=== PATIENT | male | born 1935 | race Caucasian/White ===

== ENCOUNTER 2017-09-15 13:09 | Inpatient (IN) | payer BC, MEDICARE ==
[~2017-09-15] VITALS: Ht 175.3 cm; Wt 75.0 kg
[~2017-09-15 13:09] MED LIST: ASPI-676; CELEBREX; DIOVAN/HCTZ; FEXOFENADINE; LEVAQUIN; [UNRECOGNIZED DRUG - OTHER]
[2017-09-15] MEDS ORDERED: SODIUM CHLORIDE 0.9% 1L BAG IV* STA (15:34)
--- NOTE | 2017-09-15 15:50 | ERD ---
ER Documentation Chief Complaint Chief Complaint generalized weakness,left leg discoloration/swelling x4 days, near syncope HPI This is an 82-year-old male with a known history of hypertension and previous right thoracotomy in 2009 due to a total pulmonary D cortication from a loculated pleural effusion who is on home oxygen 2.5 L. The patient does not smoke tobacco since 2009. His brought him to the emergency department stating that over the past 2 weeks he has had generalized weakness with multiple episodes of near syncope. The patient did have 2 episodes of syncope in July and August roughly 2 months prior to arrival when he fell and hit the left side of his head. She indicates that he has not complained of a headache or changes in vision. He has had issues with insomnia and has been placed on trazodone for sleep. He has had no fevers or shaking or chills. He denies a productive or nonproductive cough. He denies any abdominal pain. His also indicates that he has had pain and swelling of his left lower extremity due to blunt trauma that occurred 4 days prior to arrival. They have 100 pound [place] cross dog that had accidentally been running and stepped on the patient's left lower extremity 4 days prior to arrival. He has been able to ambulate but this exacerbates the pain. There is a significant amount of swelling and bruising which concerned the patient and therefore he was brought to the emergency department for further evaluation. His primary care physician is Dr. Menjivar. [place] any decreased sensation numbness or tingling of the left lower extremity. ROS All systems reviewed and are negative except as per history of present illness. Medications Home Meds Reported Medications Escitalopram Oxalate* (Escitalopram Oxalate*) 10 Mg Tablet, 10 MG PO BID, #30 TAB PATIENT OK IF HE TAKING THIS MEDS IN DAY TIME, BUT FOR NIGHT TIME ITS CAUSE ADV. REACTION. 09/15/17 Alendronate Sodium* (Fosamax*) 70 Mg Tablet, 70 MG PO Q7D, #4 TAB 09/15/17 Celecoxib* (Celebrex*) 200 Mg Capsule, 200 MG PO DAILY, CAP 09/15/17 Montelukast Sodium* (Montelukast Sodium*) 10 Mg Tablet, 10 MG PO QHS, #30 TAB 09/15/17 Lansoprazole* (Lansoprazole*) 30 Mg Capsule., 30 MG PO DAILY, CAP 09/15/17 Atorvastatin Calcium* (Atorvastatin Calcium*) 20 Mg Tablet, 20 MG PO QHS, #30 TAB 09/15/17 Tamsulosin Hcl* (Tamsulosin Hcl*) 0.4 Mg Cap.er.24h, 0.4 MG PO DAILY, CAP 09/15/17 Metolazone* (Metolazone*) 2.5 Mg Tablet, 2.5 MG PO NEEDED, TAB TAKE EVERY M,W,F IF NEEDED 09/15/17 Furosemide* (Furosemide*) 40 Mg Tablet, 80 MG PO BID, TAB 09/15/17 Allopurinol* (Allopurinol*) 100 Mg Tablet, 100 MG PO DAILY, TAB 09/15/17 Potassium Chloride* (K-Dur*) 10 Meq Tab.prt.sr, 10 MEQ PO DAILY, TAB AND PATIENT TAKE 2TAB IN M,W F WITH METOLAZONE 09/15/17 Discontinued Reported Medications [Fexofenadine] No Conflict Check 10/30/09 [Restaril] No Conflict Check 10/30/09 [Levaquin] No Conflict Check 10/30/09 [Celebrex] No Conflict Check 10/30/09 [Diovan/Hctz] No Conflict Check 10/30/09 Aspirin (Francine Child) 81 Mg Chew 10/30/09 Allergies Allergies: Coded Allergies: No Known Allergy (Unverified , 09/15/17) PMhx/Soc History of Surgery: Yes (SPINAL SURGER) Hx Neurological Disorder: No Hx Respiratory Disorders: No Hx Cardiac Disorders: Yes Hx Miscellaneous Medical Probl: No Hx Alcohol Use: No Hx Substance Use: No Hx Tobacco Use: No Physical Exam Vitals Vital Signs Date Time Temp Pulse Resp B/P Pulse Ox O2 Delivery O2 Flow Rate FiO2 09/15/17 17:39 75 18 109/65 99 Nasal Cannula 3.0 09/15/17 16:23 74 20 121/64 Nasal Cannula 3.0 09/15/17 13:12 97.8 83 24 116/59 91 Physical Exam Constitutional:Well-developed. Well-nourished. HEENT:Normocephalic. Atraumatic.Pupils were equal round reactive to light. Dry mucous membranes.No tonsillar exudates. Left scalp abrasion. No nasal septal hematoma. Neck: No nuchal rigidity. No lymphadenopathy. No posterior cervical spine tenderness or step-offs. Respiratory: Not using accessory muscles of respiration. Wheezing on end auscultation bilaterally. Decreased breath sounds in the right lower lobe. Cardiovascular: Regular rate regular rhythm.No murmurs. No rubs were appreciated.S1, S2 normal. Distal pulses are palpable 2+ bilaterally. GI: Abdomen was soft. Nontender. Non Distended. No pulsatile abdominal masses or bruits. No rebound. No guarding. Bowel sounds were present and normal. Muscle skeletal: Full range of motion of both the upper and lower extremities bilaterally.Normal muscle tone. Large hematoma with blistering on the medial distal left lower extremity with ecchymosis circumferentially over the distal third of the left lower extremity. Compartments were soft bilaterally. Left calf tenderness with negative Homans sign Skin: No petechia, no purpura. No lesions on the palms or the soles of the feet. No maculopapular rash. NEURO: Patient was alert, awake, orientated x3.No facial droop. Gait observed and normal with no ataxia.Speech had regular rate and rhythm. No focal neurological deficits. Result Diagram: 09/15/17 1610 09/15/17 1610 Results 24 hrs Laboratory Tests Test 09/15/17 16:10 White Blood Count 11.710^3/ul Red Blood Count 4.1510^6/ul Hemoglobin 12.4g/dl Hematocrit 37.4% Mean Corpuscular Volume 90.1fl Mean Corpuscular Hemoglobin 29.9pg Mean Corpuscular Hemoglobin Concent 33.2g/dl Red Cell Distribution Width 13.3% Platelet Count 78672^3/UL Mean Platelet Volume 10.1fl Neutrophils % 83.3% Lymphocytes % 8.7% Monocytes % 7.4% Eosinophils % 0.2% Basophils % 0.1% Nucleated Red Blood Cells % 0.0/100WBC Neutrophils # 9.810^3/ul Lymphocytes # 1.010^3/ul Monocytes # 0.910^3/ul Eosinophils # 0.010^3/ul Basophils # 0.010^3/ul Nucleated Red Blood Cells # 0.010^3/ul Prothrombin Time 12.8Sec Prothrombin Time Ratio 1.0 INR International Normalized Ratio 0.95 Activated Partial Thromboplast Time 27.5Sec Sodium Level 126mmol/L Potassium Level 3.0mmol/L Chloride Level 70mmol/L Carbon Dioxide Level 49mmol/L Anion Gap 10 Blood Urea Nitrogen 35mg/dl Creatinine 0.96mg/dl Glucose Level 97mg/dl Lactic Acid Level 1.2mmol/L Calcium Level 9.3mg/dl Total Bilirubin 0.7mg/dl Direct Bilirubin 0.00mg/dl Indirect Bilirubin 0.7mg/dl Aspartate Amino Transf (AST/SGOT) 32IU/L Alanine Aminotransferase (ALT/SGPT) 39IU/L Alkaline Phosphatase 79IU/L Troponin I 0.023ng/ml B-Type Natriuretic Peptide 678PG/ML Total Protein 6.8g/dl Albumin 3.8g/dl Globulin 3.00g/dl Albumin/Globulin Ratio 1.26 Amylase Level 70U/L Lipase 48U/L Current Medications Medications (Trade) Dose Ordered Sig/Harry Route PRN Reason Start Time Stop Time Status Last Admin Dose Admin Sodium Chloride (NS) 2,330 ml BOLUS OVER 2 HOURS STAT IV* 09/15/17 15:34 09/15/17 15:37 DC 09/15/17 16:13 Albuterol (Proventil 0.5% (Neb)) 10 mg ONCE STAT NEB 09/15/17 15:51 09/15/17 15:52 DC 09/15/17 18:04 Ipratropium [place] (Atrovent 0.02% (Neb)) 0.5 mg ONCE STAT NEB 09/15/17 15:51 09/15/17 15:52 DC 09/15/17 18:04 Methylprednisolone Sodium Succinate (Solu-Medrol) 125 mg ONCE STAT IV 09/15/17 15:51 09/15/17 15:52 DC 09/15/17 16:12 Ondansetron HCl (Zofran Inj) 4 mg ER BRIDGE PRN IV NAUSEA AND/OR VOMITING 09/15/17 18:30 09/16/17 18:29 UNV Acetaminophen (Tylenol Tab) 650 mg ER BRIDGE PRN PO MILD PAIN/FEVER 09/15/17 18:30 09/16/17 18:29 UNV Procedures/MDM The patient presented to the emergency department with a transient loss of consciousness with loss of postural tone, suggestive of a syncope episode that has occurred twice over the past several months with multiple recurrent episodes of near syncope. The differential diagnosis of syncope is vast but my workup considered common benign disorders to life-threatening processes. Therefore my differential diagnosis included but was not limited to reflex- mediated syncope such as vasovagal or carotid sinus syncope from coughing, sneezing, micturition, or GI stimulation (eg, defecation). Other etiologies in my workup included orthostatic hypotension which could cause syncope from an abrupt drop in venous return to heart from volume depletion. An EKG and cardiac enzymes were obtained to rule out cardiac arrhythmias or ischemia. Cardiopulmonary disease such as valvular disease, hypertrophic cardiomyopathy, pericardial tamponade, or pulmonary embolism were considered as a factor causing the patients syncope episode. The patient had no difference in blood pressure in both arms that could suggest aortic dissection or subclavian steal syndrome. Rectal exam was negative for fecal occult blood that could suggest GI bleeding. Ancillary laboratory work was obtained to evaluate for metabolic or electrolyte abnormalities. The patient had no witnessed brief tonic movements that could suggest postictal confusion. The patient was placed on a surveillance system monitor, continuous pulse oximetry and IV access established by nursing staff. I obtained a 12-lead EKG tracing to rule out atypical myocardial infarction I could be result of his myalgias and weakness. 12 Lead EKG tracing ordered and reviewed by myself showed: Normal sinus rhythm of 74 bpm and no arrhythmia. VT interval prolonged at 214 ms with first-degree AV block QRS duration widened at 160ms with right bundle branch block No ST segment elevation No ST segment depression. No changes consistent with acute ischemia. He also had mild respiratory distress thought to be secondary to his underlying COPD. He is on home oxygen. This was maintained in the emergency department with nasal cannula. He received nebulizer treatments of albuterol Atrovent 125 mg of Solu-Medrol. His hypoxia had improved after the nebulizer treatment but I did feel the patient required admission for continuous nebulizer treatments. The patient's CO2 level was elevated however this appeared to be the patient's baseline as there is no evidence of confusion that could suggest CO2 narcosis at this time The patient had a large hematoma of his left lower extremity but there is no evidence of a DVT nor was there a tib-fib fracture. The patient will be admitted in serious condition to his primary care physician Dr. Menjivar. I will place the patient on the telemetry service due to his hypoxia and history of COPD. Dr. Menjivar will obtain a surgical consult for further evaluation into the patient's lower extremity hematoma with no evidence of compartment syndrome at this time Departure Diagnosis: Primary Impression: Acute exacerbation of chronic obstructive pulmonary disease (COPD) Additional Impressions: Hematoma of left lower extremity Encounter type: initial encounter Qualified Code: S80.12XA - Hematoma of left lower extremity, initial encounter Frequent falls Near syncope Condition: Serious SHEYLA EDWARD Sep 15, 2017 15:50
[2017-09-15] MEDS ORDERED: IPRATROPIUM (NEB) 0.5 MG/2.5 ML AMP NEB STA (15:51)
[2017-09-15] MEDS ORDERED: ALBUTEROL 0.5% (NEB) 2.5 MG/0.5 ML AMP NEB STA (15:51)
[2017-09-15] MEDS ORDERED: METHYLPREDNISOLONE 125 MG INJ IV STA (15:51)
--- NOTE | 2017-09-15 16:29 | RADRPT ---
PROCEDURE: US Lower extremity Venous. CLINICAL INDICATION: Pain and swelling TECHNIQUE: Multiple sonographic images of the left lower extremity deep venous system was obtained utilizing grayscale, color-flow, compressive sonography and doppler imaging with augmentation. The images were reviewed on a PACS workstation. COMPARISON: None. FINDINGS: There is normal compressibility and flow within the left common femoral, deep femoral, superficial f emoral and popliteal veins. Normal respiratory variation and augmentation is seen. There is normal color flow and compressibility of left posterior tibial and peroneal veins IMPRESSION: No sonographic evidence for left lower extremity deep venous thrombosis. RPTAT: HH .Kane Dubon MD, MD Date Time Electronically viewed and signed by .Kane Dubon MD, on 09/15/2017 16:28 .W/
[2017-09-15 16:34] LABS: BASOPHILS % 0.1 % (0.0-2.0); EOSINOPHILS % 0.2 % (0.0-7.0); HEMATOCRIT 37.4 % (42.0-52.0); HEMOGLOBIN 12.4 g/dl (14.0-18.0); LYMPHOCYTES % 8.7 % (15.0-51.0); MEAN CORPUSCULAR HEMOGLOBIN 29.9 pg (29.0-33.0); MEAN CORPUSCULAR HGB CONC 33.2 g/dl (32.0-37.0); MEAN CORPUSCULAR VOLUME 90.1 fl (82.0-101.0); MEAN PLATELET VOLUME 10.1 fl (7.4-10.4); MONOCYTE # 0.9 10^3/ul (0.3-0.9); MONOCYTES % 7.4 % (0.0-11.0); NEUTROPHIL # 9.8 10^3/ul (1.6-7.5); NEUTROPHILS % 83.3 % (39.0-77.0); PLATELET COUNT 285 10^3/UL (140-415); RED BLOOD COUNT 4.15 10^6/ul (4.70-6.10); RED CELL DISTRIBUTION WIDTH 13.3 % (11.5-14.5); WHITE BLOOD COUNT 11.7 10^3/ul (4.8-10.8)
[2017-09-15 16:53] LABS: INR 0.95; PROTIME 12.8 Sec (11.9-14.9)
[2017-09-15 16:54] LABS: PARTIAL THROMBOPLASTIN TIME 27.5 Sec (25.0-35.0)
[2017-09-15 17:03] LABS: ALBUMIN 3.8 g/dl (3.3-4.9); ALBUMIN/GLOBULIN RATIO 1.26; BILIRUBIN,INDIRECT 0.7 mg/dl (0-1.1); BILIRUBIN,TOTAL 0.7 mg/dl (0.2-1.3); CALCIUM 9.3 mg/dl (8.4-10.2); CREATININE 0.96 mg/dl (0.61-1.24); TOTAL PROTEIN 6.8 g/dl (6.1-8.1)
--- NOTE | 2017-09-15 17:05 | RADRPT ---
PROCEDURE: XR Tibia and Fibula. CLINICAL INDICATION: Blunt trauma and large hematoma. TECHNIQUE: AP, lateral and oblique views of the left tibia and fibula were obtained. COMPARISON: No prior studies are available for comparison. FINDINGS: There is normal mineralization and alignment.No fracture or osseous lesion is identified. The joints are unremarkable. Large subcutaneous soft tissue swelling along the medial distal lower leg most co mpatible with soft tissue hematoma. IMPRESSION: 1. No fracture or dislocation. Large medial lower leg soft tissue hematoma. RPTAT:AAJJ Opal Tyson Physician Date Time Electronically viewed and signed by Physician Tom on 09/15/2017 17:05 KYARA/
--- NOTE | 2017-09-15 17:06 | RADRPT ---
PROCEDURE: XR Chest. CLINICAL INDICATION: Sepsis. TECHNIQUE: Single AP portable chest. COMPARISON: 12/08/2009 Chest x-ray FINDINGS: The cardiac silhouette is enlarged. Interval decrease vascular congestion and pleural effusions comp atible with improving CHF. The lungs are clear without pleural effusion or focal consolidation. No pneumothorax. The osseous structures and soft tissues are unremarkable. IMPRESSION: 1. Decreased vascular congestion and pleural effusions compatible with improving CHF . RPTAT:AAJJ Opal Tyson Physician Date Time Electronically viewed and signed by Physician Tom on 09/15/2017 17:06 KYARA/
[2017-09-15 17:14] LABS: TROPONIN-I 0.023 ng/ml (0.00-0.12)
[2017-09-15] MEDS ORDERED: ALLO100T PO (17:18)
[2017-09-15] MEDS ORDERED: FURO40TA4 PO (17:18)
[2017-09-15] MEDS ORDERED: POTA10TA37 PO (17:18)
[2017-09-15] MEDS ORDERED: METO2.5T12 PO (17:19)
[2017-09-15] MEDS ORDERED: TAMS0.4C2 PO (17:20)
[2017-09-15] MEDS ORDERED: ATOR20TA38 PO (17:20)
[2017-09-15] MEDS ORDERED: LANS30CA PO (17:20)
[2017-09-15] MEDS ORDERED: ALEN70TA30 PO (17:21)
[2017-09-15] MEDS ORDERED: MONT10TA24 PO (17:21)
[2017-09-15] MEDS ORDERED: CELE200C PO (17:21)
[2017-09-15] MEDS ORDERED: ESCI10TA48 PO (17:24)
[2017-09-15] MEDS ORDERED: ONDANSETRON 4 MG INJ IV PRN (18:30)
[2017-09-15] MEDS ORDERED: ACETAMINOPHEN 325 MG TAB PO PRN (18:30)
--- NOTE | 2017-09-15 20:55 | RADRPT ---
PROCEDURE: CT Brain without contrast. CLINICAL INDICATION: Head trauma. TECHNIQUE: A CT of the brain was performed on a GE 64-slice CT scanner utilizing axial imaging fro m the skull base through the vertex without intravenous contrast. Multiplanar reformatted images wer e made. One or more the following dose reduction techniques were utilized: Automated exposure contr ol, adjustment of the mA/ or kV according to patient's size, or use of iterative reconstruction tech nique. DICOM images are available for review. The CTDIvol is 45.0 mGy and the DLP is 720.2 mGycm. COMPARISON: None. FINDINGS: There is no intracranial hemorrhage, mass effect, or midline shift. No extra-axial fluid collection is seen. Mild atrophy is identified with compensatory ventricular and sulcal enlargement. Moderat e decreased attenuation is seen in the periventricular and deep white matter, compatible with microv ascular ischemic disease. The castillo white matter differentiation is well preserved with no acute infa rct detected. The osseous structures and visualized paranasal sinuses are unremarkable. IMPRESSION: 1. No evidence of acute intracranial pathology. 2. Mild diffuse atrophy. 3. There is moderate microvascular ischemic disease in the periventricular and deep white matter. RPTAT: HJAH .Jessika Meyer MD, MD Date Time Electronically viewed and signed by .Jessika Meyer MD, on 09/15/2017 20:54 .H/
[2017-09-16] VITALS (16 sets, daily range): BP systolic 102–150; BP diastolic 50–89; PULSE 78–90; RESP 17–21; TEMP 99.1; Ht 175.3 cm; Wt 75.0 kg
[2017-09-16] MEDS ORDERED: ALENDRONATE 70 MG TAB PO SCH (02:00)
[2017-09-16] MEDS ORDERED: POTASSIUM CHLORIDE (SR) 20 MEQ TAB PO STA (02:06)
[2017-09-16] MEDS ORDERED: VANCOMYCIN IV PER PHARMACY XX SCH (02:30)
[2017-09-16] MEDS ORDERED: ALBUTEROL/IPRATROPIUM (NEB) 3 ML AMP HHN PRN (02:30)
[2017-09-16] MEDS ORDERED: VANCOMYCIN 1 GM (PMX) 250 ML IVPB SCH (02:30)
[2017-09-16] MEDS: LEVOFLOXACIN 500MG/D5W (PMX) 100 ML IVPB SCH (02:49)
[2017-09-16] MEDS ORDERED: VANCOMYCIN 1.5 GM in SOD CHLORIDE 0.9% 250 ML IVPB SCH (04:00)
[2017-09-16] MEDS: PANTOPRAZOLE (EC) 40 MG TAB PO SCH (05:50)
[2017-09-16] MEDS: ALLOPURINOL 100 MG TAB PO SCH (08:43)
[2017-09-16] MEDS: ESCITALOPRAM 10 MG TAB PO SCH ×2 (08:44→21:43)
[2017-09-16] MEDS: POTASSIUM CHLORIDE (SR) 10 MEQ TAB PO SCH (08:45)
[2017-09-16] MEDS: TAMSULOSIN (SR) 0.4 MG CAP PO SCH (08:45)
[2017-09-16] MEDS: CELECOXIB 200 MG CAP PO SCH (08:46)
[2017-09-16] MEDS: FUROSEMIDE 40 MG INJ IV SCH (08:47)
[2017-09-16 09:08] LABS: WHITE BLOOD COUNT 9.1 10^3/ul (4.8-10.8)
[2017-09-16 09:09] LABS: HEMATOCRIT 32.7 % (42.0-52.0); HEMOGLOBIN 10.7 g/dl (14.0-18.0); LYMPHOCYTES # 0.8 10^3/ul (0.8-2.9); LYMPHOCYTES % 8.2 % (15.0-51.0); MEAN CORPUSCULAR HEMOGLOBIN 30.1 pg (29.0-33.0); MEAN CORPUSCULAR HGB CONC 32.7 g/dl (32.0-37.0); MEAN CORPUSCULAR VOLUME 91.9 fl (82.0-101.0); MEAN PLATELET VOLUME 10.2 fl (7.4-10.4); MONOCYTE # 0.9 10^3/ul (0.3-0.9); MONOCYTES % 10.1 % (0.0-11.0); NEUTROPHIL # 7.4 10^3/ul (1.6-7.5); NEUTROPHILS % 81.3 % (39.0-77.0); PLATELET COUNT 274 10^3/UL (140-415); RED BLOOD COUNT 3.56 10^6/ul (4.70-6.10); RED CELL DISTRIBUTION WIDTH 13.4 % (11.5-14.5)
[2017-09-16 09:33] LABS: ALBUMIN 3.2 g/dl (3.3-4.9); ALBUMIN/GLOBULIN RATIO 1.14; BILIRUBIN,INDIRECT 0.5 mg/dl (0-1.1); BILIRUBIN,TOTAL 0.5 mg/dl (0.2-1.3); CALCIUM 8.9 mg/dl (8.4-10.2); CREATININE 0.83 mg/dl (0.61-1.24); POTASSIUM 3.7 mmol/L (3.5-5.1)
[2017-09-16 09:41] LABS: CHOL/HDL RATIO 1.9 RATIO
[2017-09-16] MEDS: ALBUTEROL/IPRATROPIUM (NEB) 3 ML AMP HHN SCH ×4 (09:55→20:04)
--- NOTE | 2017-09-16 09:58 | CONS ---
Date/Time of Note Date/Time of Note DATE: 09/16/17 TIME: 09:34 Assessment/Plan Assessment/Plan Chief Complaint/Hosp Course 1. Large medial lower leg soft tissue hematoma: on daily asa 325mg; no fracture , no dvt -elevate leg above heart -pain management -evacuate hematoma 2. Syncope: CT head negative -further workup per medical team 3. CHF: bmp >600 -cards consult -cardiac optimization 4. Normocytic normochromic anemia: -monitor -transfuse as needed 5. Electrolyte imbalance -optimize lytes 6. Generalized weakness: 2/2 above -supportive 7. Hypertension -medical management-bp optimization Thank you. Patient seen and examined in collaboration with Dr. Michael Laguna. Problems: Consultation Date/Type/Reason Admit Date/Time Sep 15, 2017 at 18:25 Date of Consultation: Sep 16, 2017 Type of Consultation: surgical Reason for Consultation left leg hematoma Hx of Present Illness aNrciso Gamez is an 82-year-old man who was brought to the emergency department with complaints of generalized weakness x 2 weeks and multiple episodes of near syncope. He has had 2 prior episodes of syncope a few months ago with accompanying fall and hitting the left side of his head. He does not report having had any falls or injury thus far. He denies dizziness, headache or changes in vision. He denies fevers, chills congested cough, abdominal pain, nausea, vomiting. He was also noted to have a left leg swelling and discoloration that is painful that occurred 4 days prior to arrival. Reportedly , he sustained the injury from their large dog stepping on his leg. He denies numbness or tingling, or limitation in mobility of the left lower extremity. General surgery was asked to evaluate. Constitutional: No chills, No febrile Eyes: visual change ENT: No congestion Respiratory: No cough, No shortness of breath Cardiovascular: No chest pain, No lightheadedness, No palpitations Gastrointestinal: constipation, No diarrhea, No pain, No vomiting Genitourinary: No discharge, No dysuria Musculoskeletal: other (left leg as above) Skin: bruising (left leg) Neurologic: syncope (near), No confusion, No headache Psychological: nl mood/affect, No anxiety Past Medical History hypertension pulmonary disease copd Past Surgical History right thoracotomy Family History Significant Family History: no pertinent family hx Social History Smoking Status: Former smoker Drug Use: none Exam/Review of Systems Vital Signs Vitals Vital Signs Date Time Temp Pulse Resp B/P Pulse Ox O2 Delivery O2 Flow Rate FiO2 09/16/17 08:10 79 09/16/17 07:54 99.1 21 110/63 96 09/16/17 06:05 5.0 09/16/17 05:00 Nasal Cannula Intake and Output 09/15/17 09/15/17 09/16/17 14:59 22:59 06:59 Intake Total 825 ml Output Total 700 ml Balance 125 ml Exam Constitutional: alert, oriented Psych: nl mood/affect, no complaints Head: atraumatic, normocephalic Eyes: nl lids, nl sclera ENMT: mucosa pink and moist, nl nasal mucosa & septum Neck: non-tender, supple Respiratory: diminished breath sounds Cardiovascular: nl pulses, regular rate and rhythm Gastrointestinal: non-tender, other (rotund), soft Musculoskeletal: other (left lower extremity ecchymosis with hematoma; +dp pulse/movement/cap refill <3sec) Extremities: normal pulses Neurological: nl mental status, nl speech, nl strength Skin: nl turgor, other (as above) Results Result Diagram: 09/16/17 0746 09/16/17 0745 Results 24 hrs Laboratory Tests Test 09/15/17 16:10 09/16/17 03:19 09/16/17 07:45 09/16/17 07:46 White Blood Count 11.7 H 9.1 # Red Blood Count 4.15 L 3.56 L Hemoglobin 12.4 L 10.7 L Hematocrit 37.4 L 32.7 L Mean Corpuscular Volume 90.1 91.9 Mean Corpuscular Hemoglobin 29.9 30.1 Mean Corpuscular Hemoglobin Concent 33.2 32.7 Red Cell Distribution Width 13.3 13.4 Platelet Count 285 274 Mean Platelet Volume 10.1 10.2 Neutrophils % 83.3 H 81.3 H Lymphocytes % 8.7 L 8.2 L Monocytes % 7.4 10.1 Eosinophils % 0.2 0.0 Basophils % 0.1 0.0 Nucleated Red Blood Cells % 0.0 0.0 Neutrophils # 9.8 H 7.4 Lymphocytes # 1.0 0.8 Monocytes # 0.9 0.9 Eosinophils # 0.0 0.0 Basophils # 0.0 0.0 Nucleated Red Blood Cells # 0.0 0.0 Prothrombin Time 12.8 Prothrombin Time Ratio 1.0 INR International Normalized Ratio 0.95 Activated Partial Thromboplast Time 27.5 Sodium Level 126 L 128 L Potassium Level 3.0 L 3.7 Chloride Level 70 L 78 #L Carbon Dioxide Level 49 *H Pending Anion Gap 10 Pending Blood Urea Nitrogen 35 H 27 H Creatinine 0.96 0.83 Glucose Level 97 103 Lactic Acid Level 1.2 Calcium Level 9.3 8.9 Total Bilirubin 0.7 0.5 Direct Bilirubin 0.00 0.00 Indirect Bilirubin 0.7 0.5 Aspartate Amino Transf (AST/SGOT) 32 24 Alanine Aminotransferase (ALT/SGPT) 39 35 Alkaline Phosphatase 79 55 Troponin I 0.023 0.016 B-Type Natriuretic Peptide 678 H Total Protein 6.8 6.0 L Albumin 3.8 3.2 L Globulin 3.00 2.80 Albumin/Globulin Ratio 1.26 1.14 Amylase Level 70 Lipase 48 Medications Medications Current Medications Allopurinol (Zyloprim) 100 mg DAILY PO Last administered on 09/16/17 08:43; Admin Dose 100 MG; Start 09/16/17 at 09:00 Atorvastatin Calcium (Lipitor) 20 mg QHS PO ; Start 09/16/17 at 21:00 Celecoxib (Celebrex) 200 mg DAILY PO Last administered on 09/16/17 08:46; Admin Dose 200 MG; Start 09/16/17 at 09:00 Escitalopram Oxalate (Lexapro) 10 mg BID PO Last administered on 09/16/17 08: 44; Admin Dose 10 MG; Start 09/16/17 at 09:00 Montelukast Sodium (Singulair) 10 mg QHS PO ; Start 09/16/17 at 21:00 Potassium Chloride (Klor-Con 10) 10 meq DAILY PO Last administered on 08:45; Admin Dose 10 MEQ; Start 09/16/17 at 09:00 Tamsulosin HCl (Flomax) 0.4 mg DAILY PO Last administered on 09/16/17 08:45; Admin Dose 0.4 MG; Start 09/16/17 at 09:00 Furosemide (Lasix) 40 mg DAILY IV Last administered on 09/16/17 08:47; Admin Dose 40 MG; Start 09/16/17 at 09:00 Pantoprazole (Protonix Tab) 40 mg DAILY@06 PO Last administered on 09/16/17 05:50; Admin Dose 40 MG; Start 09/16/17 at 06:00 Acetaminophen 650 mg 650 mg Q6H PRN PO PAIN AND OR ELEVATED TEMP; Start at 02:30 Levofloxacin/ Dextrose (Levaquin 500mg/ D5W 100 ml (Pmx)) 100 ml @ 100 mls/hr Q24H IVPB Last administered on 09/16/17 02:49; Admin Dose 100 MLS/HR; Start 09/16/17 at 02:30 Alendronate Sodium 70 mg 70 mg Q7D PO ; Start 09/21/17 at 06:30 Vancomycin HCl/ Sodium Chloride (Vancocin/NS) 250 ml @ 83.333 mls/ hr Q24H IVPB ; Start 09/17/17 at 04:00 DOUG CHRISTINE NP Sep 16, 2017 09:44
[2017-09-16 10:15] LABS: Allen Test ACCEPTAB; Arterial Base Excess 16.3 mmol/L (-3.0-3); Arterial COHb 1.4 % (0.0-3.0); Arterial Fraction of Oxyhgb 95.1 % (93.0-99.0); Arterial HCO3 46.6 mmol/L (22.0-26.0); Arterial MetHb 0.3 % (0.0-1.5); Arterial Total Hemglobin 12.4 g/dl (12.0-18.0); MODE NASAL CANNULA
[2017-09-16] MEDS: ACETAMINOPHEN 325 MG TAB PO PRN (12:45)
--- NOTE | 2017-09-16 15:04 | RADRPT ---
Echocardiogram Report Patient Name: CHIVO MARTÍNEZ Gender: Male Date: 1935 Study Date: 16-Sep-2017 Director Of It Operations: Tony Mccallum [facility] Location: [id number] Ref. Physician: CHIOMA WALKER Quality: Technically Difficult Study Procedures: Transthoracic echocardiogram with complete 2D, M-Mode, and doppler examination. Indications: near syncope, exab. asthma. 2D/M Mode Doppler Measurement Value Normal Ranges Measurement Value Normal Ranges LVIDd 2D 4.0 3.5 - 5.6 cm TREVOR Vmax 2.3 cm2 LVIDs 2D 2.2 2.1 - 4.1 cm TREVOR VTI 2.3 cm2 LVPWd 2D 0.9 0.6 - 1.1 cm AV Mean Julio 1.4 m/sec IVSd 2D 0.8 0.6 - 1.1 cm AV Mean PG 9.8 mmHg AoR Diam 2D 3.1 2.0 - 3.7 cm AV Peak Julio 2.3 m/sec EDV 2D 70.9 cm3 AV Peak PG 18.6 mmHg ESV 2D 10.2 cm3 AV VTI 38.1 cm LA Dimen 2D 2.9 2.3 - 4.0 cm AI Peak PG 51.8 mmHg LVOT Diam 2.1 cm AI Peak Julio 3.6 m/sec AI PHT 750.6 msec LVOT Mean Julio 1.2 m/sec LVOT Mean PG 6.0 mmHg LVOT Peak Julio 1.5 m/sec LVOT Peak PG 9.5 mmHg LVOT VTI 31.9 cm MV E Peak Julio 1.1 m/sec MV A Peak Julio 1.5 m/sec MV E/A 0.7 MV Decel Time 168 msec MV Decel [place] 7 MV E/A 0.7 TR Peak Julio 3.5 m/sec TR Peak PG 49.6 mmHg RVSP 53.0 mmHg Findings Left Ventricle: Normal left ventricular systolic function. Normal left ventricular cavity size. Normal left ventricular wall thickness. Ejection fraction is visually estimated at 65 %. Tissue Doppler/Mitral Doppler indices are within normal limits. Right Ventricle: Normal right ventricular size. Normal right ventricular systolic function. Left Atrium: The left atrium is normal in size. Right Atrium: The right atrium is normal in size. Mitral Valve: Mild mitral leaflet calcification. Moderate mitral annular calcification. Trace mitral regurgitation. Aortic Valve: Mild aortic stenosis. Aortic valve Max velocity 2.25 m/sec. Max PG 20.30 mmHg. Mean PG 9.80 mmHg. Aortic valve area 2.90 cm2. Aortic cusps appear moderately calcified. Mild aortic valve regurgitation. Tricuspid Valve: Normal appearance of the tricuspid valve. Right ventricular systolic pressure is consistent with moderate pulmonary hypertension. Estimated peak PA systolic pressure 53 mmHg. There is mild to moderate tricuspid regurgitation. Pulmonic Valve: Normal pulmonic valve appearance. Pericardium: Normal pericardium with no significant pericardial effusion. Aorta: Normal aortic root. IVC: Normal size and normal respiratory collapse consistent with normal right atrial pressure. Conclusions Technically difficult study with limited visualization of endocardial borders. Normal left ventricular systolic function. Normal left ventricular cavity size. Normal left ventricular wall thickness. Ejection fraction is visually estimated at 65 %. Tissue Doppler/Mitral Doppler indices are within normal limits. Normal right ventricular size. Normal right ventricular systolic function. Moderate mitral annular calcification. Trace mitral regurgitation. Aortic cusps appear moderately calcified. Mild aortic valve regurgitation. Mild aortic stenosis. Normal appearance of the tricuspid valve. Right ventricular systolic pressure is consistent with moderate pulmonary hypertension. Estimated peak PA systolic pressure 53 mmHg. There is mild to moderate tricuspid regurgitation. Normal pericardium with no significant pericardial effusion. Normal size and normal respiratory collapse consistent with normal right atrial pressure. No Vegetation, masses, or thrombi seen. Electronically Signed By: Magno Verdugo 16-Sep-2017 15:03:36 -0800 Patient Name: CHIVO MARTÍNEZ Study Date: 16-Sep-2017 [id number]
--- NOTE | 2017-09-16 15:31 | CONS ---
Date/Time of Note Date/Time of Note DATE: 09/16/17 TIME: 15:15 Assessment/Plan Assessment/Plan Chief Complaint/Hosp Course 1. Syncope- unclear etiology, ? vasovagal vs. neuro etiology. 2d echo without sig abnl, does have moderate pulm htn likely 2/2 to COPD. no e/o ischemia on ekg, old RBBB. and trop neg x 2. no report of chest pain either, CT head negative, would check carotid u/s as well. 48hr tele monitoring to r/o arrhythmia. pt/ot eval when leg improves. 2. Leg hematoma - s/p trauma, monitor pulse/neuro status. primary/surgery managing 3. COPD- severe on chronic o2 4. BNP elevation, normal LV systolic function, LV diastolic function appears normal as well, but could have borderline stage I dysfunction. also with TR, pulm htn which could contribute - ok to given trial of gentle diuresis if sig dyspnea - watch bp 5. Hypertension- does not appear to be on medication as outpt, bp controlled. cont to monitor Problems: Consultation Date/Type/Reason Admit Date/Time Sep 15, 2017 at 18:25 Date of Consultation: Sep 16, 2017 Type of Consultation: Cardiology Reason for Consultation Syncope Referring Provider: CHIOMA WALKER MD Hx of Present Illness Narciso Gamez is an 82-year-old man with h/o of COPD, previous pleural effusion/ emypema, hypertension who presented to [facility] with sycope. Per family at bedside, pt was walking with walker with assist from bathroom to bedroom and had sudden weakness needing support to get to chair to sit down. Pt then with bladder incontinence followed by syncope/nonresponsive for a few seconds. then regained consciousness and back to normal. no report of chest pain/pressure, n/v, palpitations, sweating, sob. pt was pale after family states. no muscle jerks , weakness, sensory deficit, slurred speech after. Family denies previou sycnoep, but per chart pt with prior episodes of falling/hitting head a few months ago. Pt is restless, answers some questions. He denies palpitations, dizziness, headache, loss of vision. no chest pain/pressure, sob, pnd, rothopnea , edema. no abd pain n/v. Of note pt does have progressive left leg swelling and discoloration after having injury from a large dog stepping on him. He denies numbness or tingling , or limitation in mobility of the left lower extremity. Constitutional: no complaints, requiring O2 Eyes: no complaints ENT: no complaints Respiratory: shortness of breath (on o2 chronically) Cardiovascular: other (sycnope) Gastrointestinal: no complaints Genitourinary: no complaints Musculoskeletal: swelling (hematoma L leg) Skin: bruising Neurologic: confusion, other (restless) Psychological: confusion, other (restless), No nl mood/affect Immunologic: no complaints Past Medical History Past Medical History hypertension copd- severe on home o2 h/o empyema/pleural effusion cervical disk disease coronary calcification on old CT scan Past Surgical History right thoracotomy Family History Significant Family History: no pertinent family hx Social History Alcohol Use: none Smoking Status: Former smoker Drug Use: none Exam/Review of Systems Vital Signs Vitals Vital Signs Date Time Temp Pulse Resp B/P Pulse Ox O2 Delivery O2 Flow Rate FiO2 09/16/17 13:31 94 20 96 Nasal Cannula 4.0 09/16/17 12:04 100.1 104/50 Intake and Output 09/15/17 09/15/17 09/16/17 15:00 23:00 07:00 Intake Total 825 ml Output Total 700 ml Balance 125 ml Exam Constitutional: alert, slightly confused Psych: restless Head: atraumatic, normocephalic Eyes: nl lids, nl sclera ENMT: mucosa pink and moist, nl nasal mucosa & septum Neck: non-tender, supple Respiratory: poor air movement, crackles kyra base. Cardiovascular: RRR, nls1s2, ii/vi systolic LLSB, distant hs Gastrointestinal: non-tender, other (rotund), soft Musculoskeletal: left lower extremity ecchymosis with large hematoma on calf. 2 + DP good refill. Extremities: normal pulses Neurological: no focal abnl Skin: nl turgor, other (as above) Results Result Diagram: 09/16/17 0746 09/16/17 0745 Results 24 hrs Laboratory Tests Test 09/15/17 16:10 09/15/17 20:03 09/16/17 03:19 09/16/17 07:45 White Blood Count 11.7 H Red Blood Count 4.15 L Hemoglobin 12.4 L Hematocrit 37.4 L Mean Corpuscular Volume 90.1 Mean Corpuscular Hemoglobin 29.9 Mean Corpuscular Hemoglobin Concent 33.2 Red Cell Distribution Width 13.3 Platelet Count 285 Mean Platelet Volume 10.1 Neutrophils % 83.3 H Lymphocytes % 8.7 L Monocytes % 7.4 Eosinophils % 0.2 Basophils % 0.1 Nucleated Red Blood Cells % 0.0 Neutrophils # 9.8 H Lymphocytes # 1.0 Monocytes # 0.9 Eosinophils # 0.0 Basophils # 0.0 Nucleated Red Blood Cells # 0.0 Prothrombin Time 12.8 Prothrombin Time Ratio 1.0 INR International Normalized Ratio 0.95 Activated Partial Thromboplast Time 27.5 Sodium Level 126 L 128 L Potassium Level 3.0 L 3.7 Chloride Level 70 L 78 #L Carbon Dioxide Level 49 *H 47 *H Anion Gap 10 7 L Blood Urea Nitrogen 35 H 27 H Creatinine 0.96 0.83 Glucose Level 97 103 Lactic Acid Level 1.2 Calcium Level 9.3 8.9 Total Bilirubin 0.7 0.5 Direct Bilirubin 0.00 0.00 Indirect Bilirubin 0.7 0.5 Aspartate Amino Transf (AST/SGOT) 32 24 Alanine Aminotransferase (ALT/SGPT) 39 35 Alkaline Phosphatase 79 55 Troponin I 0.023 0.016 B-Type Natriuretic Peptide 678 H 1530 H Total Protein 6.8 6.0 L Albumin 3.8 3.2 L Globulin 3.00 2.80 Albumin/Globulin Ratio 1.26 1.14 Amylase Level 70 Lipase 48 Blood Gas Specimen Source Blood arterial Arterial Blood Date Drawn 09/15/2017 8:20:00 PM Arterial Blood pH (Temp corrected) 7.319 L Arterial Blood pCO2 (Temp correct) 92.8 *H Arterial Blood pO2 (Temp corrected) 104.9 H Arterial Blood HCO3 46.6 *H Arterial Blood Base Excess 16.3 H Arterial Blood Oxygen Saturation 96.7 Derik Test ACCEPTAB Arterial Blood Gas Puncture Site Right Radial Arterial Blood Carboxyhemoglobin 1.4 Arterial Blood Methemoglobin 0.3 Blood Gas A-a O2 Differential 103.0 H Oxyhemoglobin Percent 95.1 Total Hemoglobin 12.4 Blood Gas Temperature 37.0 Blood Gas Actual Respiration Rate 20 Blood Gas Modality NASAL CANNULA FiO2 44.0 Blood Gas Critical Value Read Back Alexey EDWARD MD Blood Gas Notified Whom MM Blood Gas Notified Time 09/15/2017 8:31:00 PM Magnesium Level 2.4 Thyroid Stimulating Hormone (TSH) 0.077 L Test 09/16/17 07:46 White Blood Count 9.1 # Red Blood Count 3.56 L Hemoglobin 10.7 L Hematocrit 32.7 L Mean Corpuscular Volume 91.9 Mean Corpuscular Hemoglobin 30.1 Mean Corpuscular Hemoglobin Concent 32.7 Red Cell Distribution Width 13.4 Platelet Count 274 Mean Platelet Volume 10.2 Neutrophils % 81.3 H Lymphocytes % 8.2 L Monocytes % 10.1 Eosinophils % 0.0 Basophils % 0.0 Nucleated Red Blood Cells % 0.0 Neutrophils # 7.4 Lymphocytes # 0.8 Monocytes # 0.9 Eosinophils # 0.0 Basophils # 0.0 Nucleated Red Blood Cells # 0.0 Troponin I 0.025 Triglycerides Level 60 Cholesterol Level 72 L LDL Cholesterol, Calculated 23 HDL Cholesterol 37 Cholesterol/HDL Ratio 1.9 Medications Medications Current Medications Allopurinol (Zyloprim) 100 mg DAILY PO Last administered on 09/16/17 08:43; Admin Dose 100 MG; Start 09/16/17 at 09:00 Atorvastatin Calcium (Lipitor) 20 mg QHS PO ; Start 09/16/17 at 21:00 Celecoxib (Celebrex) 200 mg DAILY PO Last administered on 09/16/17 08:46; Admin Dose 200 MG; Start 09/16/17 at 09:00 Escitalopram Oxalate (Lexapro) 10 mg BID PO Last administered on 09/16/17 08: 44; Admin Dose 10 MG; Start 09/16/17 at 09:00 Montelukast Sodium (Singulair) 10 mg QHS PO ; Start 09/16/17 at 21:00 Potassium Chloride (Klor-Con 10) 10 meq DAILY PO Last administered on 08:45; Admin Dose 10 MEQ; Start 09/16/17 at 09:00 Tamsulosin HCl (Flomax) 0.4 mg DAILY PO Last administered on 09/16/17 08:45; Admin Dose 0.4 MG; Start 09/16/17 at 09:00 Furosemide (Lasix) 40 mg DAILY IV Last administered on 09/16/17 08:47; Admin Dose 40 MG; Start 09/16/17 at 09:00 Pantoprazole (Protonix Tab) 40 mg DAILY@06 PO Last administered on 09/16/17 05:50; Admin Dose 40 MG; Start 09/16/17 at 06:00 Acetaminophen 650 mg 650 mg Q6H PRN PO PAIN AND OR ELEVATED TEMP Last administered on 09/16/17 12:45; Admin Dose 650 MG; Start 09/16/17 at 02:30 Levofloxacin/ Dextrose (Levaquin 500mg/ D5W 100 ml (Pmx)) 100 ml @ 100 mls/hr Q24H IVPB Last administered on 09/16/17 02:49; Admin Dose 100 MLS/HR; Start 09/16/17 at 02:30 Alendronate Sodium 70 mg 70 mg Q7D PO ; Start 09/21/17 at 06:30 Vancomycin HCl/ Sodium Chloride (Vancocin/NS) 250 ml @ 83.333 mls/ hr Q24H IVPB ; Start 09/17/17 at 04:00 Nystatin (Nystatin Powder) 1 applic BID TOP ; Start 09/16/17 at 21:00 Procedures Procedures EKG: sinus 1st degree avb, RBBB CXR/CT head report reviewed provider notes reviewed CRYSTAL BUTLER Sep 16, 2017 15:27
--- NOTE | 2017-09-16 17:09 | RADRPT ---
PROCEDURE: US Carotids. CLINICAL INDICATION: Syncope TECHNIQUE: Multiple sonographic of the carotid bifurcation region and vertebral arteries were obta ined utilizing castillo scale, duplex and color-flow imaging. The images were reviewed on a PACS worksta tion. COMPARISON: None FINDINGS: Evaluation of the right carotid bifurcation region reveals no significant calcific atherosclerotic d isease. Evaluation of the left carotid bifurcation region reveals no significant calcific atherosclerotic di sease. There is antegrade flow within the vertebral arteries bilaterally. RIGHT CAROTID MEASUREMENTS: Common Carotid [id number] (cm/sec) Internal Carotid Artery - [id number] (cm/sec) Internal Carotid Artery - mid48 (cm/sec) Internal Carotid Artery - [id number] (cm/sec) Internal Carotid/Common Carotid1.0 LEFT CAROTID MEASUREMENTS: Common Carotid Artery 73 (cm/sec) Internal Carotid Artery - proximal 119 (cm/sec) Internal Carotid Artery - mid 88 (cm/sec) Internal Carotid Artery - distal 44 (cm/sec) Internal Carotid/Common Carotid 1.6 IMPRESSION: 1. No evidence of a significant stenosis of the right internal carotid artery. 2. No evidence of a significant stenosis of the left internal carotid artery. 3. Normal antegrade flow in the vertebral arteries bilaterally. Measurement of carotid stenosis is based on peak systolic and diastolic velocity parameters that cor relate to the residual internal carotid diameter with [place] Symptomatic Carotid Endarterect natalia Trial (NASCET) based stenosis levels. Normal ( < 50% )- ICA peak systolic velocity < 125 cm/sec, ICA / CCA ratio < 2.0 Moderate stenosis ( 50 - 69% )- ICA peak systolic velocity 125 - 230 cm/sec, ICA / CCA ratio 2.0 - 4.0 Severe stenosis ( >70% )- ICA peak systolic velocity > 230 cm/sec, ICA / CCA ratio > 4.0 RPTAT:AAJJ Physician Sadia Date Time Electronically viewed and signed by Physician Sadia on 09/16/2017 17:09 /
--- NOTE | 2017-09-16 18:22 | CONS ---
DATE OF ADMISSION: 09/15/2017 DATE OF CONSULTATION: TYPE OF CONSULTATION: Pulmonary. REASON FOR CONSULTATION: Shortness of breath. Thank you, Dr. Walekr, for this consultation. HISTORY OF PRESENT ILLNESS: This is an 82-year-old gentleman seen by myself in the office with COPD , restrictive lung disease, chronic hypercapnia, admitted with syncopal episode, found to have mild respiratory distress. Arterial blood gas demonstrating severe respiratory acidosis with mild compen sation. The patient is arousable at bedside. His says he has been slowly deteriorating over t he past few days. Currently, no chest pain, palpitations, orthopnea or PND. PAST MEDICAL HISTORY: Hypertension, hyperlipidemia, restrictive lung disease, history of empyema wi th pleural effusions, history of thoracotomy. SOCIAL HISTORY: He is an ex-smoker. No alcohol. No history of drug use. FAMILY HISTORY: Noncontributory. REVIEW OF SYSTEMS: A 12-point review of systems negative other than that mentioned above. PHYSICAL EXAMINATION: GENERAL: Chronically ill-appearing gentleman, opens eyes and answers questions, appears comfortable at rest. VITAL SIGNS: Temperature 100.1, pulse is 94, blood pressure 104/50, O2 sat 96% on 4 liters nasal ca nnula. NECK: Diminished range of motion. No JVD. CARDIOVASCULAR: S1, S2. A II/ systolic ejection murmur. CHEST: Diminished air entry bilaterally with a few rales. ABDOMEN: Soft, nontender. No guarding or rebound. EXTREMITIES: No cyanosis, clubbing or edema. NEUROLOGIC: Generalized weakness. LABORATORIES: ABG: PH 7.31, pCO2 of 92, pO2 of 104. White count 9.1, hemoglobin 10.7, platelets o f 274. BNP 1530. INR 0.95. Chest x-ray was reviewed, shows mild congestive cardiac failure. IMPRESSION AND PLAN: 1. Acute on chronic hypoxemic and hypercapnic respiratory failure. 2. Underlying chronic obstructive pulmonary disease and restrictive lung disease. 3. History of emphysema. 4. Congestive cardiac failure with preserved ejection fraction, mild pulmonary hypertension. PLAN: 1. Nocturnal noninvasive positive pressure ventilation. 2. Aspiration precautions. 3. Cardiac recommendations. 4. DVT and GI prophylaxis. 5. Outpatient BiPAP. Dictated By: RAY GILLETTE/DONG Conf#: [id number] DID#: [id number] CC: CHIOMA WALKER MD;*EndCC*
--- NOTE | 2017-09-16 18:46 | HP ---
DATE OF ADMISSION: 09/15/2017 CHIEF COMPLAINT: Bruising and blister on the left leg and shortness of breath. HISTORY OF PRESENT ILLNESS: The patient is an 82-year-old male with history of O2 dependen t COPD, history of diastolic congestive heart failure who complains of bruising his left leg after h is 100-pound dog had jumped onto his leg while he was in bed. The patient had initial bruising diff usely in the left leg, subsequently developed a large blister and presented for evaluation. The pat ient also notes that his breathing has become progressively worse in the last few weeks to the point where he has some dyspnea even at rest. The patient denies any chest pains, palpitations, dizzines s. He apparently also had an episode of syncope, when he felt unstable walking to the kitchen for b reakfast the day of admission and was able to reach a chair, but had a brief episode of lapse in con sciousness lasting about 2 seconds according to . The patient awoke, no evidence of any seizure activity, no postictal period. No focal weakness. The patient was brought to [facility] ER and felt to have a COPD exacerbation in addition to his large ecchymosis and blister formation on his left leg. The patient was given Solu-Medrol, breathing treatments and also found to be hyponat remic and given some normal saline. Patient is admitted for further management. PAST MEDICAL HISTORY: COPD, O2 dependent, hypertension, depression, diastolic heart failure, BPH, o steoarthritis, hiatal hernia, irritable bowel syndrome. OPERATIONS: Prior tracheotomy, decortication of the right lung, cholecystectomy, inguinal hernia on the right, neck surgery. MEDICATIONS 1. Lipitor 20 mg daily. 2. Fosamax 70 mg weekly. 3. Trazadone 100 mg daily. 4. Citalopram 10 mg b.i.d. 5. Singulair 10 mg daily. 6. Allopurinol 300 mg daily. 7. Prevacid 30 mg daily. 8. Combivent inhaler p.r.n. 9. Metolazone 2.5 mg p.r.n. 10. Celebrex 200 mg daily p.r.n. 11. Potassium 10 mEq daily. 12. Flomax 0.4 mg daily. ALLERGIES: PATIENT HAS NO KNOWN DRUG ALLERGIES. SOCIAL HISTORY: The patient is . Prior [id number] tobacco history. Occasional alcohol u se. 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 FAMILY HISTORY: Patient's father from heart disease. Mother from dementia. Brother dece ased from gallbladder cancer, a brother and sister who are alive, and a son and daughter who are ali ve. Daughter has hypertension, hyperlipidemia, and diabetes. REVIEW OF SYSTEMS: GENERAL: The patient denies any fever, chills, night sweats, or other general complaints. HEENT: The patient with chronic congestion and runny nose. Denies any visual problems, other ear, nose, throat problems. RESPIRATORY: As noted in HPI. CARDIOVASCULAR: As noted in HPI. GASTROINTESTINAL: The patient denies any abdominal pain, nausea, vomiting, bright red blood per rec tom, melena, or diarrhea, constipation. GENITOURINARY: The patient denies any dysuria. He does have some urinary frequency. He has had a few bouts of continence, no other urinary symptoms. NEUROLOGIC: The patient denies any focal weakness. PHYSICAL EXAMINATION: VITAL SIGNS: Temperature 99.1, pulse 79, blood pressure 110/63, pulse oximetry 96% on 4 liters O2. GENERAL APPEARANCE: This is an elderly male, slightly dyspneic, but in no acute distress. Appears nontoxic. HEENT: Normocephalic, atraumatic. Sclerae anicteric. Oropharynx is clear. NECK: Supple, no adenopathy. LUNGS: Decreased breath sounds at bases, few basilar crackles. CARDIAC: Regular rate and rhythm. ABDOMEN: Bowel sounds are present. Abdomen is soft, nontender, nondistended. EXTREMITIES: There is a large area of ecchymosis with focal swelling anteriorly, large hemorrhagic blister in the medial compartment, mild edema on the right leg. NEUROLOGIC: The patient is awake and alert, responds appropriately. No focal neurologic findings. DATA: EKG shows sinus rhythm at 74, first degree AV block. Chest x-ray showed pulmonary vascular c ongestion. Left lower extremity duplex was negative for DVT. Head CT shows mild atrophy, microvasc ular ischemic changes. Tib-fib x-ray negative for fractures. White count 11.7, hemoglobin 12.4, pl atelets 285. Sodium 126, potassium 3.0, chloride 70, bicarbonate 49, BUN 35, creatinine 0.96, gluco se 97, AST 32, ALT is 39. Lactic acid 1.2. Troponin 0.023. BNP 678. INR is 0.95. ABG pH 7.39, p O2 is 105, pCO2 92.8, bicarbonate 47, satting 97% on FIO2 of 44. IMPRESSION: Chronic obstructive pulmonary disease exacerbation with hypercapnia, acute exacerbation of diastolic congestive heart failure, syncope, hematoma of the left leg with blister formation, hy ponatremia, hypokalemia, hypertension. PLAN: Admit to telemetry. Careful diuresis, fluid restriction. Surgical evaluation for management of blister formation on left leg. Cardiology evaluation, pulmonary eval. Respiratory treatment, I V antibiotics consisting of Levaquin and vancomycin, a 2D echocardiogram, carotid duplex scan, monit or labs. Dictated By: CHIOMA PENA/DONG Conf#: [id number] DID#: [id number]
[2017-09-16] MEDS: NYSTATIN 30 GM POWDER BTL TOP SCH (21:42)
[2017-09-16] MEDS: ATORVASTATIN 20 MG TAB PO SCH (21:43)
[2017-09-16] MEDS: MONTELUKAST 10 MG TAB PO SCH (21:43)
[2017-09-17] VITALS (18 sets, daily range): BP systolic 90–131; BP diastolic 53–82; PULSE 67–92; RESP 18–22
[2017-09-17] MEDS: LEVOFLOXACIN 500MG/D5W (PMX) 100 ML IVPB SCH (03:19)
[2017-09-17] MEDS ORDERED: VANCOMYCIN 1.5 GM in SOD CHLORIDE 0.9% 250 ML IVPB SCH (04:00)
[2017-09-17] MEDS: PANTOPRAZOLE (EC) 40 MG TAB PO SCH (06:00)
[2017-09-17] MEDS: ALBUTEROL/IPRATROPIUM (NEB) 3 ML AMP HHN SCH ×4 (08:30→20:20)
[2017-09-17] MEDS: POTASSIUM CHLORIDE (SR) 10 MEQ TAB PO SCH (08:55)
[2017-09-17] MEDS: CELECOXIB 200 MG CAP PO SCH (08:59)
[2017-09-17] MEDS: ALLOPURINOL 100 MG TAB PO SCH (09:00)
[2017-09-17] MEDS: BALSAM PERU/CASTOR OIL 60 GM TUBE TOP SCH (09:00)
[2017-09-17] MEDS: FUROSEMIDE 40 MG INJ IV SCH (09:00)
[2017-09-17] MEDS: NYSTATIN 30 GM POWDER BTL TOP SCH ×2 (09:00→21:00)
[2017-09-17] MEDS: TAMSULOSIN (SR) 0.4 MG CAP PO SCH (09:00)
[2017-09-17] MEDS: ESCITALOPRAM 10 MG TAB PO SCH ×2 (09:00→19:54)
[2017-09-17] MEDS ORDERED: LIDOCAINE 1%/EPI 30 ML INJ INJ STA (09:19)
[2017-09-17 09:36] LABS: BASOPHILS % 0.2 % (0.0-2.0); EOSINOPHILS % 0.2 % (0.0-7.0); HEMATOCRIT 32.8 % (42.0-52.0); HEMOGLOBIN 10.6 g/dl (14.0-18.0); LYMPHOCYTES # 0.9 10^3/ul (0.8-2.9); LYMPHOCYTES % 6.6 % (15.0-51.0); MEAN CORPUSCULAR HEMOGLOBIN 30.3 pg (29.0-33.0); MEAN CORPUSCULAR HGB CONC 32.3 g/dl (32.0-37.0); MEAN CORPUSCULAR VOLUME 93.7 fl (82.0-101.0); MEAN PLATELET VOLUME 10.2 fl (7.4-10.4); MONOCYTE # 1.5 10^3/ul (0.3-0.9); MONOCYTES % 11.2 % (0.0-11.0); NEUTROPHIL # 10.6 10^3/ul (1.6-7.5); NEUTROPHILS % 81.3 % (39.0-77.0); PLATELET COUNT 252 10^3/UL (140-415); RED CELL DISTRIBUTION WIDTH 13.6 % (11.5-14.5); WHITE BLOOD COUNT 13.1 10^3/ul (4.8-10.8)
--- NOTE | 2017-09-17 09:46 | CONS ---
Date/Time of Note Date/Time of Note DATE: 09/17/17 TIME: 09:42 Assessment/Plan Assessment/Plan Chief Complaint/Hosp Course 1. Syncope- unclear etiology, could be related to pulmonary disease vs. vasovagal. cardiac workup negative thus far including 2d echo, carotids, tele monitoring, and ekg/lab eval for ischemia. would asses o2 status and needs with ambulation, pt/ot eval when leg improves. 2. Leg hematoma - s/p trauma, monitor pulse/neuro status. primary/surgery managing 3. COPD- severe on chronic o2 4. BNP elevation, normal LV systolic function, LV diastolic function appears normal as well, but could have borderline stage I dysfunction. also with TR, pulm htn which could contribute - gentle diuresis, watch bun/cr/electrolytes - convert to po when stable - watch hyponatremia as well 5. Hypertension- does not appear to be on medication as outpt, bp controlled. cont to monitor Problems: Consultation Date/Type/Reason Admit Date/Time Sep 15, 2017 at 18:25 Initial Consult Date 09/16/17 Type of Consultation: Cardiology Referring Provider: CHIOMA WALKER MD 24 HR Interval Summary Free Text/Dictation pt more alert today, calm/relaxed, denies any dizziness/lightheadedness. no palpitations. no events on tele. states used bipap overnight, slept well Detailed Summary ENT: No bleeding, No congestion, No discharge, No dysphagia, No no complaints, No other, No pain, No sore throat Respiratory: shortness of breath, No cough, No no complaints, No other, No pain, No pleuritic pain, No sputum, No wheezing Cardiovascular: No chest pain, No edema, No lightheadedness, No no complaints, No orthopenea, No other, No palpitations, No paroxysmal nocturnal dyspnea Gastrointestinal: No blood, No constipation, No decreased appetite, No diarrhea , No flatus, No nausea, No no complaints, No other, No pain, No passing stool, No vomiting Exam/Review of Systems Vital Signs Vitals Vital Signs Date Time Temp Pulse Resp B/P Pulse Ox O2 Delivery O2 Flow Rate FiO2 09/17/17 08:38 73 09/17/17 07:56 98.6 19 104/54 99 09/17/17 05:02 4.0 09/17/17 03:06 40 09/16/17 20:05 Nasal Cannula Intake and Output 09/16/17 09/16/17 09/17/17 14:59 22:59 06:59 Intake Total 450 ml 300 ml Output Total 1100 ml 800 ml Balance -650 ml -500 ml Exam Constitutional: alert, oriented Psych: restless Head: atraumatic, normocephalic Eyes: nl lids, nl sclera ENMT: mucosa pink and moist, nl nasal mucosa & septum Neck: non-tender, supple Respiratory: poor air movement, crackles kyra base. Cardiovascular: RRR, nls1s2, ii/vi systolic LLSB, distant hs Gastrointestinal: non-tender, other (rotund), soft Musculoskeletal: left lower extremity ecchymosis with large hematoma on calf. 2 + DP good refill. Extremities: normal pulses Neurological: no focal abnl Skin: nl turgor, other (as above) Results Result Diagram: 09/17/17 0810 09/16/17 0745 Results 24 hrs Laboratory Tests Test 09/17/17 08:10 White Blood Count 13.1 #H Red Blood Count 3.50 L Hemoglobin 10.6 L Hematocrit 32.8 L Mean Corpuscular Volume 93.7 Mean Corpuscular Hemoglobin 30.3 Mean Corpuscular Hemoglobin Concent 32.3 Red Cell Distribution Width 13.6 Platelet Count 252 Mean Platelet Volume 10.2 Neutrophils % 81.3 H Lymphocytes % 6.6 L Monocytes % 11.2 H Eosinophils % 0.2 Basophils % 0.2 Nucleated Red Blood Cells % 0.0 Neutrophils # 10.6 H Lymphocytes # 0.9 Monocytes # 1.5 H Eosinophils # 0.0 Basophils # 0.0 Nucleated Red Blood Cells # 0.0 Medications Medications Current Medications Allopurinol (Zyloprim) 100 mg DAILY PO Last administered on 09/17/17 09:00; Admin Dose 100 MG; Start 09/16/17 at 09:00 Atorvastatin Calcium (Lipitor) 20 mg QHS PO Last administered on 09/16/17 21: 43; Admin Dose 20 MG; Start 09/16/17 at 21:00 Celecoxib (Celebrex) 200 mg DAILY PO Last administered on 09/17/17 08:59; Admin Dose 200 MG; Start 09/16/17 at 09:00 Escitalopram Oxalate (Lexapro) 10 mg BID PO Last administered on 09/17/17 09: 00; Admin Dose 10 MG; Start 09/16/17 at 09:00 Montelukast Sodium (Singulair) 10 mg QHS PO Last administered on 09/16/17 21: 43; Admin Dose 10 MG; Start 09/16/17 at 21:00 Potassium Chloride (Klor-Con 10) 10 meq DAILY PO Last administered on 08:55; Admin Dose 10 MEQ; Start 09/16/17 at 09:00 Tamsulosin HCl (Flomax) 0.4 mg DAILY PO Last administered on 09/17/17 09:00; Admin Dose 0.4 MG; Start 09/16/17 at 09:00 Furosemide (Lasix) 40 mg DAILY IV Last administered on 09/17/17 09:00; Admin Dose 40 MG; Start 09/16/17 at 09:00 Pantoprazole (Protonix Tab) 40 mg DAILY@06 PO Last administered on 09/17/17 06:00; Admin Dose 40 MG; Start 09/16/17 at 06:00 Acetaminophen 650 mg 650 mg Q6H PRN PO PAIN AND OR ELEVATED TEMP Last administered on 09/16/17 12:45; Admin Dose 650 MG; Start 09/16/17 at 02:30 Levofloxacin/ Dextrose (Levaquin 500mg/ D5W 100 ml (Pmx)) 100 ml @ 100 mls/hr Q24H IVPB Last administered on 09/17/17 03:19; Admin Dose 100 MLS/HR; Start 09/16/17 at 02:30 Alendronate Sodium 70 mg 70 mg Q7D PO ; Start 09/21/17 at 06:30 Vancomycin HCl/ Sodium Chloride (Vancocin/NS) 250 ml @ 83.333 mls/ hr Q24H IVPB Last administered on 09/17/17 03:31; Admin Dose 83.333 MLS/HR; Start at 04:00 Nystatin (Nystatin Powder) 1 applic BID TOP Last administered on 09/17/17 09: 00; Admin Dose 1 APPLIC; Start 09/16/17 at 21:00 Procedures Procedures carotid report reviewed in emr tele reviewed tracings, per hpi CRYSTAL BUTLER Sep 17, 2017 09:46
[2017-09-17 09:52] LABS: ALBUMIN 3.1 g/dl (3.3-4.9); ALBUMIN/GLOBULIN RATIO 1.14; BILIRUBIN,INDIRECT 1.1 mg/dl (0-1.1); BILIRUBIN,TOTAL 1.1 mg/dl (0.2-1.3); CREATININE 0.87 mg/dl (0.61-1.24); POTASSIUM 3.6 mmol/L (3.5-5.1); TOTAL PROTEIN 5.8 g/dl (6.1-8.1)
--- NOTE | 2017-09-17 10:55 | PN ---
Date/Time of Note Date/Time of Note DATE: 09/17/17 TIME: 10:49 Assessment/Plan VTE Prophylaxis VTE Prophylaxis Intervention: other Lines/Catheters IV Catheter Type (from [facility]): Saline Lock Urinary Cath still in place: No Assessment/Plan Assessment/Plan A: acute exacerbation of copd with hypercapnea acute exacerbation of diastolic chf syncope hematoma lt leg hyponatremia hypokalemia P: drainage of hematoma today per surgery cont bipap qhs careful diuresis cont abx resp rx monitor labs Subjective 24 Hr Interval Summary Free Text/Dictation Surgery, cardiology and pulmonary consults and care appreciated. Pt put on bipap overnight. Pt feeling much better today. Mild pain in legs relieved with tylenol. No cp. Breathing closer to baseline. Plan for drainage of hematoma by surgery today. Exam/Review of Systems Vital Signs Vitals Vital Signs Date Time Temp Pulse Resp B/P Pulse Ox O2 Delivery O2 Flow Rate FiO2 09/17/17 08:38 73 09/17/17 07:56 98.6 19 104/54 99 09/17/17 05:02 4.0 09/17/17 03:06 40 09/16/17 20:05 Nasal Cannula Intake and Output 09/16/17 09/16/17 09/17/17 14:59 22:59 06:59 Intake Total 450 ml 300 ml Output Total 1100 ml 800 ml Balance -650 ml -500 ml Exam gen- nad, nontoxic. lungs- dec bs at bases, mild basilar crackles. heart- RRR abd- +bs, soft ext- tr edema rt LE, hematoma, hemorrhagic blister lt leg Results Result Diagram: 09/17/17 0810 09/17/17 0810 Results 24 hrs Laboratory Tests Test 09/17/17 08:10 White Blood Count 13.1 #H Red Blood Count 3.50 L Hemoglobin 10.6 L Hematocrit 32.8 L Mean Corpuscular Volume 93.7 Mean Corpuscular Hemoglobin 30.3 Mean Corpuscular Hemoglobin Concent 32.3 Red Cell Distribution Width 13.6 Platelet Count 252 Mean Platelet Volume 10.2 Neutrophils % 81.3 H Lymphocytes % 6.6 L Monocytes % 11.2 H Eosinophils % 0.2 Basophils % 0.2 Nucleated Red Blood Cells % 0.0 Neutrophils # 10.6 H Lymphocytes # 0.9 Monocytes # 1.5 H Eosinophils # 0.0 Basophils # 0.0 Nucleated Red Blood Cells # 0.0 Sodium Level 136 Potassium Level 3.6 Chloride Level 83 L Carbon Dioxide Level 48 *H Anion Gap 9 Blood Urea Nitrogen 25 H Creatinine 0.87 Glucose Level 95 Calcium Level 9.0 Total Bilirubin 1.1 Direct Bilirubin 0.00 Indirect Bilirubin 1.1 Aspartate Amino Transf (AST/SGOT) 24 Alanine Aminotransferase (ALT/SGPT) 36 Alkaline Phosphatase 54 Total Protein 5.8 L Albumin 3.1 L Globulin 2.70 Albumin/Globulin Ratio 1.14 Medications Medications Current Medications Allopurinol (Zyloprim) 100 mg DAILY PO Last administered on 09/17/17 09:00; Admin Dose 100 MG; Start 09/16/17 at 09:00 Atorvastatin Calcium (Lipitor) 20 mg QHS PO Last administered on 09/16/17 21: 43; Admin Dose 20 MG; Start 09/16/17 at 21:00 Celecoxib (Celebrex) 200 mg DAILY PO Last administered on 09/17/17 08:59; Admin Dose 200 MG; Start 09/16/17 at 09:00 Escitalopram Oxalate (Lexapro) 10 mg BID PO Last administered on 09/17/17 09: 00; Admin Dose 10 MG; Start 09/16/17 at 09:00 Montelukast Sodium (Singulair) 10 mg QHS PO Last administered on 09/16/17 21: 43; Admin Dose 10 MG; Start 09/16/17 at 21:00 Potassium Chloride (Klor-Con 10) 10 meq DAILY PO Last administered on 08:55; Admin Dose 10 MEQ; Start 09/16/17 at 09:00 Tamsulosin HCl (Flomax) 0.4 mg DAILY PO Last administered on 09/17/17 09:00; Admin Dose 0.4 MG; Start 09/16/17 at 09:00 Furosemide (Lasix) 40 mg DAILY IV Last administered on 09/17/17 09:00; Admin Dose 40 MG; Start 09/16/17 at 09:00 Pantoprazole (Protonix Tab) 40 mg DAILY@06 PO Last administered on 09/17/17 06:00; Admin Dose 40 MG; Start 09/16/17 at 06:00 Acetaminophen 650 mg 650 mg Q6H PRN PO PAIN AND OR ELEVATED TEMP Last administered on 09/16/17 12:45; Admin Dose 650 MG; Start 09/16/17 at 02:30 Levofloxacin/ Dextrose (Levaquin 500mg/ D5W 100 ml (Pmx)) 100 ml @ 100 mls/hr Q24H IVPB Last administered on 09/17/17 03:19; Admin Dose 100 MLS/HR; Start 09/16/17 at 02:30 Alendronate Sodium 70 mg 70 mg Q7D PO ; Start 09/21/17 at 06:30 Vancomycin HCl/ Sodium Chloride (Vancocin/NS) 250 ml @ 83.333 mls/ hr Q24H IVPB Last administered on 09/17/17 03:31; Admin Dose 83.333 MLS/HR; Start at 04:00 Nystatin (Nystatin Powder) 1 applic BID TOP Last administered on 09/17/17 09: 00; Admin Dose 1 APPLIC; Start 09/16/17 at 21:00 CHIOMA WALKER MD Sep 17, 2017 10:55
--- NOTE | 2017-09-17 11:44 | CONS ---
Date/Time of Note Date/Time of Note DATE: 09/17/17 TIME: 11:43 Assessment/Plan Assessment/Plan Additional Assessment/Plan Assessment recommendations; 1. Patient admitted with hypercapnic respiratory failure likely from sleep apnea versus central hypoventilation. Next 2. History of COPD. 3. History of gout, and BPH. 4. Currently no evidence of any infective process. Discontinue antibiotics. Patient would qualify for home BiPAP without sleep study on account of underlying hypercapnia. Meanwhile continue current other supportive measures. Consultation Date/Type/Reason Admit Date/Time Sep 15, 2017 at 18:25 Initial Consult Date 09/16/17 Type of Consultation: Pulmonary Referring Provider: CHIOMA WALKER MD 24 HR Interval Summary Free Text/Dictation Patient's condition is markedly improved. He denies any further shortness of breath. Denies any chest pain, wheezing, cough sputum production. Denies any fever or chills. General exam; elderly male, awake and alert. Currently in no distress. Exam/Review of Systems Vital Signs Vitals Vital Signs Date Time Temp Pulse Resp B/P Pulse Ox O2 Delivery O2 Flow Rate FiO2 09/17/17 08:38 73 09/17/17 07:56 98.6 19 104/54 99 09/17/17 05:02 4.0 09/17/17 03:06 40 09/16/17 20:05 Nasal Cannula Intake and Output 09/16/17 09/16/17 09/17/17 14:59 22:59 06:59 Intake Total 450 ml 300 ml Output Total 1100 ml 800 ml Balance -650 ml -500 ml Exam HEENT exam; supple neck, no JVD. No lymphadenopathy. Midline trachea. No thyromegaly. Patient has 1 remaining tooth in lower jaw. Chest exam; diminished but clear breath sounds. S1-S2 audible, no murmurs. Regular rhythm. Abdomen exam; soft, nontender. No organomegaly. Bowel sounds audible. Extremity exam; no edema. 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 Results Result Diagram: 09/17/17 0810 09/17/17 0810 Results 24 hrs Laboratory Tests Test 09/17/17 08:10 White Blood Count 13.1 #H Red Blood Count 3.50 L Hemoglobin 10.6 L Hematocrit 32.8 L Mean Corpuscular Volume 93.7 Mean Corpuscular Hemoglobin 30.3 Mean Corpuscular Hemoglobin Concent 32.3 Red Cell Distribution Width 13.6 Platelet Count 252 Mean Platelet Volume 10.2 Neutrophils % 81.3 H Lymphocytes % 6.6 L Monocytes % 11.2 H Eosinophils % 0.2 Basophils % 0.2 Nucleated Red Blood Cells % 0.0 Neutrophils # 10.6 H Lymphocytes # 0.9 Monocytes # 1.5 H Eosinophils # 0.0 Basophils # 0.0 Nucleated Red Blood Cells # 0.0 Sodium Level 136 Potassium Level 3.6 Chloride Level 83 L Carbon Dioxide Level 48 *H Anion Gap 9 Blood Urea Nitrogen 25 H Creatinine 0.87 Glucose Level 95 Calcium Level 9.0 Total Bilirubin 1.1 Direct Bilirubin 0.00 Indirect Bilirubin 1.1 Aspartate Amino Transf (AST/SGOT) 24 Alanine Aminotransferase (ALT/SGPT) 36 Alkaline Phosphatase 54 Total Protein 5.8 L Albumin 3.1 L Globulin 2.70 Albumin/Globulin Ratio 1.14 Medications Medications Current Medications Allopurinol (Zyloprim) 100 mg DAILY PO Last administered on 09/17/17 09:00; Admin Dose 100 MG; Start 09/16/17 at 09:00 Atorvastatin Calcium (Lipitor) 20 mg QHS PO Last administered on 09/16/17 21: 43; Admin Dose 20 MG; Start 09/16/17 at 21:00 Celecoxib (Celebrex) 200 mg DAILY PO Last administered on 09/17/17 08:59; Admin Dose 200 MG; Start 09/16/17 at 09:00 Escitalopram Oxalate (Lexapro) 10 mg BID PO Last administered on 09/17/17 09: 00; Admin Dose 10 MG; Start 09/16/17 at 09:00 Montelukast Sodium (Singulair) 10 mg QHS PO Last administered on 09/16/17 21: 43; Admin Dose 10 MG; Start 09/16/17 at 21:00 Potassium Chloride (Klor-Con 10) 10 meq DAILY PO Last administered on 08:55; Admin Dose 10 MEQ; Start 09/16/17 at 09:00 Tamsulosin HCl (Flomax) 0.4 mg DAILY PO Last administered on 09/17/17 09:00; Admin Dose 0.4 MG; Start 09/16/17 at 09:00 Furosemide (Lasix) 40 mg DAILY IV Last administered on 09/17/17 09:00; Admin Dose 40 MG; Start 09/16/17 at 09:00 Pantoprazole (Protonix Tab) 40 mg DAILY@06 PO Last administered on 09/17/17 06:00; Admin Dose 40 MG; Start 09/16/17 at 06:00 Acetaminophen 650 mg 650 mg Q6H PRN PO PAIN AND OR ELEVATED TEMP Last administered on 09/16/17 12:45; Admin Dose 650 MG; Start 09/16/17 at 02:30 Levofloxacin/ Dextrose (Levaquin 500mg/ D5W 100 ml (Pmx)) 100 ml @ 100 mls/hr Q24H IVPB Last administered on 09/17/17 03:19; Admin Dose 100 MLS/HR; Start 09/16/17 at 02:30 Alendronate Sodium 70 mg 70 mg Q7D PO ; Start 09/21/17 at 06:30 Vancomycin HCl/ Sodium Chloride (Vancocin/NS) 250 ml @ 83.333 mls/ hr Q24H IVPB Last administered on 09/17/17 03:31; Admin Dose 83.333 MLS/HR; Start at 04:00 Nystatin (Nystatin Powder) 1 applic BID TOP Last administered on 09/17/17 09: 00; Admin Dose 1 APPLIC; Start 09/16/17 at 21:00 TRINA GOMEZ Sep 17, 2017 11:44
[2017-09-17] MEDS: ACETAMINOPHEN 325 MG TAB PO PRN (12:17)
[2017-09-17] MEDS ORDERED: HYDROCODONE/APAP (5/325) TAB PO PRN (13:00)
--- NOTE | 2017-09-17 13:46 | PN ---
Date/Time of Note Date/Time of Note DATE: 09/17/17 TIME: 13:45 Assessment/Plan Lines/Catheters IV Catheter Type (from [facility]): Saline Lock Veliz in Place (from [facility]): No Assessment/Plan Chief Complaint/Hosp Course 1. Large medial lower leg soft tissue hematoma: on daily asa 325mg; no fracture , no dvt -elevate leg above heart -pain management -evacuate hematoma -local care -estefanía wrap -monitor closely 2. Syncope: CT head negative -further workup per medical team 3. CHF: bmp >600 -cards consult -cardiac optimization 4. Normocytic normochromic anemia: -monitor -transfuse as needed 5. Electrolyte imbalance -optimize lytes 6. Generalized weakness: 2/2 above -supportive 7. Hypertension -medical management-bp optimization Thank you, Problems: Subjective 24 Hr Interval Summary No f/c. No n/v. No cp/sob. No cough. No schaffer/dizzy/visual or neurological changes. Pain in right knee. No pain in left. Exam/Review of Systems Vital Signs Vitals Vital Signs Date Time Temp Pulse Resp B/P Pulse Ox O2 Delivery O2 Flow Rate FiO2 09/17/17 12:30 77 09/17/17 11:49 4.0 09/17/17 11:41 98.9 22 90/53 96 09/17/17 08:30 Nasal Cannula 09/17/17 03:06 40 Intake and Output 09/16/17 09/16/17 09/17/17 14:59 22:59 06:59 Intake Total 450 ml 300 ml Output Total 1100 ml 800 ml Balance -650 ml -500 ml Exam Free Text/Dictation Constitutional: alert, oriented Psych: nl mood/affect, no complaints Head: atraumatic, normocephalic Eyes: nl lids, nl sclera ENMT: mucosa pink and moist, nl nasal mucosa & septum Neck: non-tender, supple Respiratory: diminished breath sounds Cardiovascular: nl pulses, regular rate and rhythm Gastrointestinal: non-tender, other (rotund), soft Musculoskeletal: other (left lower extremity ecchymosis with hematoma; +dp pulse/movement/cap refill <3sec) Extremities: normal pulses Neurological: nl mental status, nl speech, nl strength Skin: nl turgor, other (as above) Results Result Diagram: 09/17/1780909/17/17809 AROLDO LOPEZ MD Sep 17, 2017 13:46
--- NOTE | 2017-09-17 13:50 | OPR ---
Date/Time of Note Date/Time of Note DATE: 09/17/17 TIME: 13:47 Operative Report Procedure Date: Sep 17, 2017 Preoperative Diagnosis Left lower extremity hematoma Postoperative Diagnosis Same Operation/Procedure Performed Incision and drainage of left lower extremity hematoma Surgeon Aroldo Lopez MD Bulk Pigment Reducer Taryn Reese NP Anesthesia Type: other Estimated Blood Loss: 0 - 10 ml's Transfusion none Specimen None Grafts/Implants none Tubes/Drains None Complications none Pt Condition Post Procedure: stable Disposition: other (In room) Indications Per notes R/B/A as per usual and customary d/w patient and and both agree to proceed. Procedure Description Patient was placed supine on his bed. All pressure points padded. He is on abx. Time out done Incision made at inferior margin of the hematoma and fully drained. Washed with betadine and silver dressing with loose estefanía applied. Patient tolerated procedure well. AROLDO LOPEZ MD Sep 17, 2017 13:49
[2017-09-17] MEDS: ATORVASTATIN 20 MG TAB PO SCH (19:54)
[2017-09-17] MEDS: MONTELUKAST 10 MG TAB PO SCH (19:54)
[2017-09-17] MEDS: HYDROCODONE/APAP (5/325) TAB PO PRN (23:15)
[2017-09-18] VITALS (15 sets, daily range): BP systolic 102–131; BP diastolic 57–74; PULSE 75–92; RESP 16–20
[2017-09-18] MEDS: PANTOPRAZOLE (EC) 40 MG TAB PO SCH (05:38)
[2017-09-18] MEDS: ALBUTEROL/IPRATROPIUM (NEB) 3 ML AMP HHN SCH ×4 (08:59→20:11)
[2017-09-18 09:08] LABS: BASOPHILS % 0.1 % (0.0-2.0); EOSINOPHILS # 0.1 10^3/ul (0.0-0.5); EOSINOPHILS % 0.9 % (0.0-7.0); HEMATOCRIT 35.9 % (42.0-52.0); LYMPHOCYTES # 0.8 10^3/ul (0.8-2.9); LYMPHOCYTES % 6.2 % (15.0-51.0); MEAN CORPUSCULAR HEMOGLOBIN 29.6 pg (29.0-33.0); MEAN CORPUSCULAR HGB CONC 30.6 g/dl (32.0-37.0); MEAN CORPUSCULAR VOLUME 96.5 fl (82.0-101.0); MEAN PLATELET VOLUME 9.8 fl (7.4-10.4); MONOCYTE # 1.2 10^3/ul (0.3-0.9); MONOCYTES % 8.7 % (0.0-11.0); NEUTROPHIL # 11.3 10^3/ul (1.6-7.5); NEUTROPHILS % 83.7 % (39.0-77.0); PLATELET COUNT 227 10^3/UL (140-415); RED BLOOD COUNT 3.72 10^6/ul (4.70-6.10); RED CELL DISTRIBUTION WIDTH 13.6 % (11.5-14.5); WHITE BLOOD COUNT 13.5 10^3/ul (4.8-10.8)
[2017-09-18] MEDS: CELECOXIB 200 MG CAP PO SCH (09:20)
[2017-09-18] MEDS: POTASSIUM CHLORIDE (SR) 10 MEQ TAB PO SCH (09:20)
[2017-09-18] MEDS: ESCITALOPRAM 10 MG TAB PO SCH ×2 (09:20→20:29)
[2017-09-18] MEDS: TAMSULOSIN (SR) 0.4 MG CAP PO SCH (09:20)
[2017-09-18] MEDS: ALLOPURINOL 100 MG TAB PO SCH (09:20)
[2017-09-18] MEDS: FUROSEMIDE 40 MG INJ IV SCH (09:21)
[2017-09-18] MEDS: NYSTATIN 30 GM POWDER BTL TOP SCH ×2 (09:21→20:29)
[2017-09-18 09:26] LABS: CALCIUM 9.4 mg/dl (8.4-10.2); CREATININE 0.74 mg/dl (0.61-1.24); POTASSIUM 3.3 mmol/L (3.5-5.1)
[2017-09-18] MEDS: BALSAM PERU/CASTOR OIL 60 GM TUBE TOP SCH (09:28)
[2017-09-18 09:57] LABS: THYROID STIMULATING HORMONE 0.041 MIU/L (0.465-4.680)
--- NOTE | 2017-09-18 11:59 | CONS ---
Date/Time of Note Date/Time of Note DATE: 09/18/17 TIME: 11:54 Assessment/Plan Assessment/Plan Additional Assessment/Plan Assessment and recommendations; 1. Patient admitted with shortness of breath due to hypercapnic respiratory failure doing well on intermittent BiPAP. 2. Underlying COPD. 3. History of gout. 4. History of BPH. Continue current treatment. Patient will benefit fr home BiPAP use at home, should be arranged prior to discharge. Consultation Date/Type/Reason Admit Date/Time Sep 15, 2017 at 18:25 Initial Consult Date 09/16/17 Type of Consultation: Pulmonary Referring Provider: CHIOMA WALKER MD 24 HR Interval Summary Free Text/Dictation Patient's condition is stable. Denies any shortness of breath, coughing, chest pain or wheezing. General exam; elderly male, awake and alert. Currently in no distress. Laying flat in bed. Exam/Review of Systems Vital Signs Vitals Vital Signs Date Time Temp Pulse Resp B/P Pulse Ox O2 Delivery O2 Flow Rate FiO2 09/18/17 08:22 75 09/18/17 08:00 98.1 16 121/57 97 09/18/17 04:31 4.0 09/18/17 02:41 40 09/17/17 17:55 Nasal Cannula Intake and Output 09/17/17 09/17/17 09/18/17 15:00 23:00 07:00 Intake Total 410 ml 60 ml Output Total 1300 ml Balance -890 ml 60 ml Exam HEENT exam; supple neck, no JVD. No lymphadenopathy. Midline trachea. No thyromegaly. Patient has only one remaining tooth in the lower jaw. Pupils are small bilaterally. Chest exam; diminished but clear breath sounds. No added sounds. S1-S2 audible , no murmurs. Regular rhythm. Abdomen exam; soft, nondistended. Nontender. No organomegaly. Bowel sounds audible. Extremity exam; no edema. Patient has a multiple ecchymosis involving all 4 extremities. 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 Results Result Diagram: 09/18/1728 09/18/1728 Results 24 hrs Laboratory Tests Test 09/18/17 08:28 White Blood Count 13.5 H Red Blood Count 3.72 L Hemoglobin 11.0 L Hematocrit 35.9 L Mean Corpuscular Volume 96.5 Mean Corpuscular Hemoglobin 29.6 Mean Corpuscular Hemoglobin Concent 30.6 L Red Cell Distribution Width 13.6 Platelet Count 227 Mean Platelet Volume 9.8 Neutrophils % 83.7 H Lymphocytes % 6.2 L Monocytes % 8.7 Eosinophils % 0.9 Basophils % 0.1 Nucleated Red Blood Cells % 0.0 Neutrophils # 11.3 H Lymphocytes # 0.8 Monocytes # 1.2 H Eosinophils # 0.1 Basophils # 0.0 Nucleated Red Blood Cells # 0.0 Sodium Level 139 Potassium Level 3.3 L Chloride Level 86 L Carbon Dioxide Level 50 *H Anion Gap 6 L Blood Urea Nitrogen 19 Creatinine 0.74 Glucose Level 109 Calcium Level 9.4 Thyroid Stimulating Hormone (TSH) 0.041 L Free Thyroxine 1.72 Medications Medications Current Medications Allopurinol (Zyloprim) 100 mg DAILY PO Last administered on 09/18/17 09:20; Admin Dose 100 MG; Start 09/16/17 at 09:00 Atorvastatin Calcium (Lipitor) 20 mg QHS PO Last administered on 09/17/17 19: 54; Admin Dose 20 MG; Start 09/16/17 at 21:00 Celecoxib (Celebrex) 200 mg DAILY PO Last administered on 09/18/17 09:20; Admin Dose 200 MG; Start 09/16/17 at 09:00 Escitalopram Oxalate (Lexapro) 10 mg BID PO Last administered on 09/18/17 09: 20; Admin Dose 10 MG; Start 09/16/17 at 09:00 Montelukast Sodium (Singulair) 10 mg QHS PO Last administered on 09/17/17 19: 54; Admin Dose 10 MG; Start 09/16/17 at 21:00 Potassium Chloride (Klor-Con 10) 10 meq DAILY PO Last administered on 09:20; Admin Dose 10 MEQ; Start 09/16/17 at 09:00 Tamsulosin HCl (Flomax) 0.4 mg DAILY PO Last administered on 09/18/17 09:20; Admin Dose 0.4 MG; Start 09/16/17 at 09:00 Furosemide (Lasix) 40 mg DAILY IV Last administered on 09/18/17 09:21; Admin Dose 40 MG; Start 09/16/17 at 09:00 Pantoprazole (Protonix Tab) 40 mg DAILY@06 PO Last administered on 09/18/17 05:38; Admin Dose 40 MG; Start 09/16/17 at 06:00 Acetaminophen (Tylenol Tab) 650 mg Q6H PRN PO PAIN AND OR ELEVATED TEMP Last administered on 09/17/17 12:17; Admin Dose 650 MG; Start 09/16/17 at 02:30 Alendronate Sodium (Fosamax) 70 mg Q7D PO ; Start 09/21/17 at 06:30 Nystatin (Nystatin Powder) 1 applic BID TOP Last administered on 09/18/17 09: 21; Admin Dose 1 APPLIC; Start 09/16/17 at 21:00 Acetaminophen/ Hydrocodone Bitart ([place] (5/325)) 1 tab Q6H PRN PO PAIN LEVEL 4 -6 Last administered on 09/17/17 23:15; Admin Dose 1 TAB; Start 09/17/17 at 13:00 Acetaminophen/ Hydrocodone Bitart ([place] (5/325)) 2 tab Q6H PRN PO SEVERE PAIN LEVEL 7-10; Start 09/17/17 at 13:00 TRINA GOMEZ Sep 18, 2017 11:59
--- NOTE | 2017-09-18 12:32 | PN ---
Date/Time of Note Date/Time of Note DATE: 09/18/17 TIME: 12:26 Assessment/Plan Lines/Catheters IV Catheter Type (from [facility]): Saline Lock Veliz in Place (from [facility]): No Assessment/Plan Chief Complaint/Hosp Course 1. Large medial lower leg soft tissue hematoma: on daily asa 325mg at home ; no fracture, no dvt, hematoma improved in size -elevate leg above heart -pain management -evacuate hematoma -local care -estefanía wrap -monitor closely -consider stopping asa 2. Syncope: CT head negative -further workup per medical team 3. CHF: bmp >600 -cards consult -cardiac optimization 4. Normocytic normochromic anemia: -monitor -transfuse as needed 5. Electrolyte imbalance -optimize lytes 6. Generalized weakness: 2/2 above -supportive 7. Hypertension -medical management-bp optimization 8. Hypercapnia: no sob, on bipap -per pulm Thank you. Patient seen and examined in collaboration with Dr. Michael Laguna. Problems: Subjective 24 Hr Interval Summary S/p hematoma evacuation 09/17. No new wounds/hematoma/active bleeding. Hypercapnia. No fevers, chills, sob, congested cough, cp, palpitations, schaffer, dizziness, n/v/d/dysuria. Exam/Review of Systems Vital Signs Vitals Vital Signs Date Time Temp Pulse Resp B/P Pulse Ox O2 Delivery O2 Flow Rate FiO2 09/18/17 12:08 98.4 83 17 104/57 99 09/18/17 08:30 Nasal Cannula 4.0 09/18/17 02:41 40 Intake and Output 09/17/17 09/17/17 09/18/17 15:00 23:00 07:00 Intake Total 410 ml 60 ml Output Total 1300 ml Balance -890 ml 60 ml Exam Free Text/Dictation Constitutional: alert, oriented Psych: nl mood/affect, no complaints Head: atraumatic, normocephalic Eyes: nl lids, nl sclera ENMT: mucosa pink and moist, nl nasal mucosa & septum Neck: non-tender, supple Respiratory: diminished breath sounds Cardiovascular: nl pulses, regular rate and rhythm Gastrointestinal: non-tender, other (rotund), soft Musculoskeletal: other (left lower extremity ecchymosis with hematoma; +dp pulse/movement/cap refill <3sec) Extremities: normal pulses Neurological: nl mental status, nl speech, nl strength Skin: nl turgor, other (as above) Results Result Diagram: 09/18/1728 09/18/17 0828 DOUG CRHISTINE NP Sep 18, 2017 12:32
[2017-09-18] MEDS ORDERED: POTASSIUM CHLORIDE (SR) 20 MEQ TAB PO STA (13:44)
--- NOTE | 2017-09-18 13:44 | PN ---
Date/Time of Note Date/Time of Note DATE: 09/18/17 TIME: 13:37 Assessment/Plan VTE Prophylaxis VTE Prophylaxis Intervention: other Lines/Catheters IV Catheter Type (from Nrs): Saline Lock Urinary Cath still in place: No Assessment/Plan Assessment/Plan A: acute copd exacerbation with hypercapnea hematoma lt leg acute diastolic chf hypokalemia constipation subclinical hyperthyroid syncope- neg w/u P: k replacement hold asa stool softener miralax prn home bipap being arranged cont other rx Subjective 24 Hr Interval Summary Free Text/Dictation Pt feeling better. Had drainage of hematoma yesterday, mild accumulation anteriorly. Breathing at baseline. No cp, dizziness. No bm x2d. No abd pain. Exam/Review of Systems Vital Signs Vitals Vital Signs Date Time Temp Pulse Resp B/P Pulse Ox O2 Delivery O2 Flow Rate FiO2 09/18/17 13:09 81 09/18/17 12:08 98.4 17 104/57 99 09/18/17 08:30 Nasal Cannula 4.0 09/18/17 02:41 40 Intake and Output 09/17/17 09/17/17 09/18/17 15:00 23:00 07:00 Intake Total 410 ml 60 ml Output Total 1300 ml Balance -890 ml 60 ml Exam gen- nad, nontoxic lungs- sl dec bs bases heart- RRR abd- +BS, soft ext- tr edema, hematoma lt leg, mild blood accumulation anteriorly, wound dressed. Results Result Diagram: 09/18/1728 09/18/17 0828 Results 24 hrs Laboratory Tests Test 09/18/17 08:28 White Blood Count 13.5 H Red Blood Count 3.72 L Hemoglobin 11.0 L Hematocrit 35.9 L Mean Corpuscular Volume 96.5 Mean Corpuscular Hemoglobin 29.6 Mean Corpuscular Hemoglobin Concent 30.6 L Red Cell Distribution Width 13.6 Platelet Count 227 Mean Platelet Volume 9.8 Neutrophils % 83.7 H Lymphocytes % 6.2 L Monocytes % 8.7 Eosinophils % 0.9 Basophils % 0.1 Nucleated Red Blood Cells % 0.0 Neutrophils # 11.3 H Lymphocytes # 0.8 Monocytes # 1.2 H Eosinophils # 0.1 Basophils # 0.0 Nucleated Red Blood Cells # 0.0 Sodium Level 139 Potassium Level 3.3 L Chloride Level 86 L Carbon Dioxide Level 50 *H Anion Gap 6 L Blood Urea Nitrogen 19 Creatinine 0.74 Glucose Level 109 Calcium Level 9.4 Thyroid Stimulating Hormone (TSH) 0.041 L Free Thyroxine 1.72 Medications Medications Current Medications Allopurinol (Zyloprim) 100 mg DAILY PO Last administered on 09/18/17 09:20; Admin Dose 100 MG; Start 09/16/17 at 09:00 Atorvastatin Calcium (Lipitor) 20 mg QHS PO Last administered on 09/17/17 19: 54; Admin Dose 20 MG; Start 09/16/17 at 21:00 Celecoxib (Celebrex) 200 mg DAILY PO Last administered on 09/18/17 09:20; Admin Dose 200 MG; Start 09/16/17 at 09:00 Escitalopram Oxalate (Lexapro) 10 mg BID PO Last administered on 09/18/17 09: 20; Admin Dose 10 MG; Start 09/16/17 at 09:00 Montelukast Sodium (Singulair) 10 mg QHS PO Last administered on 09/17/17 19: 54; Admin Dose 10 MG; Start 09/16/17 at 21:00 Potassium Chloride (Klor-Con 10) 10 meq DAILY PO Last administered on 09:20; Admin Dose 10 MEQ; Start 09/16/17 at 09:00 Tamsulosin HCl (Flomax) 0.4 mg DAILY PO Last administered on 09/18/17 09:20; Admin Dose 0.4 MG; Start 09/16/17 at 09:00 Furosemide (Lasix) 40 mg DAILY IV Last administered on 09/18/17 09:21; Admin Dose 40 MG; Start 09/16/17 at 09:00 Pantoprazole (Protonix Tab) 40 mg DAILY@06 PO Last administered on 09/18/17 05:38; Admin Dose 40 MG; Start 09/16/17 at 06:00 Acetaminophen (Tylenol Tab) 650 mg Q6H PRN PO PAIN AND OR ELEVATED TEMP Last administered on 09/17/17 12:17; Admin Dose 650 MG; Start 09/16/17 at 02:30 Alendronate Sodium (Fosamax) 70 mg Q7D PO ; Start 09/21/17 at 06:30 Nystatin (Nystatin Powder) 1 applic BID TOP Last administered on 12/14/17at 09: 21; Admin Dose 1 APPLIC; Start 09/16/17 at 21:00 Acetaminophen/ Hydrocodone Bitart ([place] (5/325)) 1 tab Q6H PRN PO PAIN LEVEL 4 -6 Last administered on 09/17/17t 23:15; Admin Dose 1 TAB; Start 09/17/17 at 13:00 Acetaminophen/ Hydrocodone Bitart ([place] (5/325)) 2 tab Q6H PRN PO SEVERE PAIN LEVEL 7-10; Start 09/17/17 at 13:00 CHIOMA WALKER MD Sep 18, 2017 13:44
[2017-09-18] MEDS ORDERED: POLYETHYLENE GLYCOL 17 GM PACKET PO PRN (14:00)
--- NOTE | 2017-09-18 16:51 | RADRPT ---
PROCEDURE: XR Chest. CLINICAL INDICATION: Shortness of breath. TECHNIQUE: Single frontal view of the chest was obtained. COMPARISON: 12/08/2009. FINDINGS: Interval removal of tracheostomy tube. The cardiomediastinal silhouette demonstrates enlargement of the cardiac silhouette. There are aorti c calcifications. There are bilateral interstitial opacities. No pleural effusion is seen. No definite pneumothorax. No acute osseous abnormality. Decreased bone mineralization. IMPRESSION: 1. Interval removal of tracheostomy tube. 2. Bilateral interstitial opacities, which could represent pulmonary vascular congestion. RPTAT: AAEE Tali Pringle Physician Date Time Electronically viewed and signed by Tali Pringle Physician on 09/18/2017 10:07 PH/
[2017-09-18] MEDS: FUROSEMIDE 40 MG TAB PO SCH (17:33)
[2017-09-18] MEDS: ATORVASTATIN 20 MG TAB PO SCH (20:29)
[2017-09-18] MEDS: ASCORBIC ACID 500 MG TAB PO SCH (20:29)
[2017-09-18] MEDS: MONTELUKAST 10 MG TAB PO SCH (20:29)
[2017-09-18] MEDS: DOCUSATE SODIUM 10 MG/ML (10ML CUP) PO SCH (21:00)
[2017-09-18] MEDS ORDERED: DOCUSATE SODIUM 100 MG CAP PO SCH (21:00)
[2017-09-19] VITALS (16 sets, daily range): BP systolic 94–114; BP diastolic 51–62; PULSE 73–88; RESP 19–21
[2017-09-19] MEDS: PANTOPRAZOLE (EC) 40 MG TAB PO SCH (05:18)
[2017-09-19] MEDS: FUROSEMIDE 40 MG TAB PO SCH ×2 (05:18→17:25)
[2017-09-19 07:55] LABS: BASOPHILS % 0.2 % (0.0-2.0); EOSINOPHILS # 0.2 10^3/ul (0.0-0.5); EOSINOPHILS % 1.8 % (0.0-7.0); HEMATOCRIT 35.5 % (42.0-52.0); HEMOGLOBIN 11.1 g/dl (14.0-18.0); LYMPHOCYTES # 0.7 10^3/ul (0.8-2.9); LYMPHOCYTES % 5.5 % (15.0-51.0); MEAN CORPUSCULAR HEMOGLOBIN 30.4 pg (29.0-33.0); MEAN CORPUSCULAR HGB CONC 31.3 g/dl (32.0-37.0); MEAN CORPUSCULAR VOLUME 97.3 fl (82.0-101.0); MEAN PLATELET VOLUME 10.1 fl (7.4-10.4); MONOCYTES % 7.9 % (0.0-11.0); NEUTROPHILS % 84.1 % (39.0-77.0); PLATELET COUNT 233 10^3/UL (140-415); RED BLOOD COUNT 3.65 10^6/ul (4.70-6.10); RED CELL DISTRIBUTION WIDTH 13.8 % (11.5-14.5); WHITE BLOOD COUNT 13.1 10^3/ul (4.8-10.8)
[2017-09-19 08:17] LABS: CALCIUM 9.3 mg/dl (8.4-10.2); CREATININE 0.76 mg/dl (0.61-1.24); POTASSIUM 3.8 mmol/L (3.5-5.1)
--- NOTE | 2017-09-19 08:25 | CONS ---
Date/Time of Note Date/Time of Note DATE: 09/19/17 TIME: 08:20 Assessment/Plan Assessment/Plan Chief Complaint/Hosp Course 1. Syncope- unclear etiology, could be related to pulmonary disease vs. vasovagal. cardiac workup negative. would asses o2 status and needs with ambulation, pt/ot eval when leg improves. 2. Leg hematoma - s/p trauma, monitor pulse/neuro status. primary/surgery managing s/p drainage 3. COPD- severe on chronic o2 4. BNP elevation- likely acute on chronic diastolic heart failure. normal LV systolic function, borderline stage I dysfunction on review of echo. also with TR, pulm htn which could contribute - gentle diuresis, watch bun/cr/electrolytes. po lasix, can cut to daily prior to discharge 5. Hypertension- does not appear to be on medication as outpt, bp controlled. cont to monitor Thank yo Problems: Consultation Date/Type/Reason Admit Date/Time Sep 15, 2017 at 18:25 Initial Consult Date 09/16/17 Type of Consultation: cardiology Referring Provider: CHIOMA WALKER MD 24 HR Interval Summary Free Text/Dictation pt seen 12 am. pt states feels well, family at bedside. no cp/sob. no dizziness, syncope. not out of bed. LLE hematoma s/p drainage, mild ttp. dressing intact Tele reviewed: nsr no events Detailed Summary Eyes: no complaints ENT: no complaints Respiratory: no complaints Cardiovascular: no complaints Gastrointestinal: no complaints Exam/Review of Systems Vital Signs Vitals Vital Signs Date Time Temp Pulse Resp B/P Pulse Ox O2 Delivery O2 Flow Rate FiO2 09/19/17 08:17 73 09/19/17 07:36 98.8 20 100/54 100 09/19/17 07:35 Nasal Cannula 2.0 09/19/17 00:07 40 Intake and Output 09/18/17 09/18/17 09/19/17 14:59 22:59 06:59 Intake Total 500 ml 180 ml Output Total 500 ml 400 ml 800 ml Balance -500 ml 100 ml -620 ml Exam Constitutional: alert, oriented Psych: restless Head: atraumatic, normocephalic Eyes: nl lids, nl sclera ENMT: mucosa pink and moist, nl nasal mucosa & septum Neck: non-tender, supple Respiratory: poor air movement, crackles kyra base. Cardiovascular: RRR, nls1s2, ii/vi systolic LLSB, distant hs Gastrointestinal: non-tender, other (rotund), soft Musculoskeletal: left lower extremity in dressing c/d/i. 2+ DP good refill. Extremities: normal pulses Neurological: no focal abnl Skin: nl turgor, other (as above) Results Result Diagram: 09/19/17 0711 09/19/17 0711 Results 24 hrs Laboratory Tests Test 09/18/17 08:28 09/19/17 07:11 White Blood Count 13.5 H 13.1 H Red Blood Count 3.72 L 3.65 L Hemoglobin 11.0 L 11.1 L Hematocrit 35.9 L 35.5 L Mean Corpuscular Volume 96.5 97.3 Mean Corpuscular Hemoglobin 29.6 30.4 Mean Corpuscular Hemoglobin Concent 30.6 L 31.3 L Red Cell Distribution Width 13.6 13.8 Platelet Count 227 233 Mean Platelet Volume 9.8 10.1 Neutrophils % 83.7 H 84.1 H Lymphocytes % 6.2 L 5.5 L Monocytes % 8.7 7.9 Eosinophils % 0.9 1.8 Basophils % 0.1 0.2 Nucleated Red Blood Cells % 0.0 0.0 Neutrophils # 11.3 H 11.0 H Lymphocytes # 0.8 0.7 L Monocytes # 1.2 H 1.0 H Eosinophils # 0.1 0.2 Basophils # 0.0 0.0 Nucleated Red Blood Cells # 0.0 0.0 Sodium Level 139 141 Potassium Level 3.3 L 3.8 Chloride Level 86 L 88 L Carbon Dioxide Level 50 *H Anion Gap 6 L Pending Blood Urea Nitrogen 19 27 H Creatinine 0.74 0.76 Glucose Level 109 117 Calcium Level 9.4 9.3 Thyroid Stimulating Hormone (TSH) 0.041 L Free Thyroxine 1.72 Medications Medications Current Medications Allopurinol (Zyloprim) 100 mg DAILY PO Last administered on 09/18/17 09:20; Admin Dose 100 MG; Start 09/16/17 at 09:00 Atorvastatin Calcium (Lipitor) 20 mg QHS PO Last administered on 09/18/17 20: 29; Admin Dose 20 MG; Start 09/16/17 at 21:00 Celecoxib (Celebrex) 200 mg DAILY PO Last administered on 09/18/17 09:20; Admin Dose 200 MG; Start 09/16/17 at 09:00 Escitalopram Oxalate (Lexapro) 10 mg BID PO Last administered on 09/18/17 20: 29; Admin Dose 10 MG; Start 09/16/17 at 09:00 Montelukast Sodium (Singulair) 10 mg QHS PO Last administered on 09/18/17 20: 29; Admin Dose 10 MG; Start 09/16/17 at 21:00 Potassium Chloride (Klor-Con 10) 10 meq DAILY PO Last administered on 09:20; Admin Dose 10 MEQ; Start 09/16/17 at 09:00 Tamsulosin HCl (Flomax) 0.4 mg DAILY PO Last administered on 09/18/17 09:20; Admin Dose 0.4 MG; Start 09/16/17 at 09:00 Pantoprazole (Protonix Tab) 40 mg DAILY@06 PO Last administered on 09/19/17 05:18; Admin Dose 40 MG; Start 09/16/17 at 06:00 Acetaminophen (Tylenol Tab) 650 mg Q6H PRN PO PAIN AND OR ELEVATED TEMP Last administered on 09/17/17 12:17; Admin Dose 650 MG; Start 09/16/17 at 02:30 Alendronate Sodium (Fosamax) 70 mg Q7D PO ; Start 09/21/17 at 06:30 Nystatin (Nystatin Powder) 1 applic BID TOP Last administered on 09/18/17 20: 29; Admin Dose 1 APPLIC; Start 09/16/17 at 21:00 Acetaminophen/ Hydrocodone Bitart ([place] (5/325)) 1 tab Q6H PRN PO PAIN LEVEL 4 -6 Last administered on 09/17/17 23:15; Admin Dose 1 TAB; Start 09/17/17 at 13:00 Acetaminophen/ Hydrocodone Bitart ([place] (5/325)) 2 tab Q6H PRN PO SEVERE PAIN LEVEL 7-10 Last administered on 09/18/17 20:30; Admin Dose 2 TAB; Start 09/17 at 13:00 Polyethylene Glycol (Miralax) 17 gm DAILY PRN PO CONSTIPATION Last administered on 09/18/17 14:31; Admin Dose 17 GM; Start 09/18/17 at 14:00 Ascorbic Acid (Vitamin C) 500 mg BID PO Last administered on 09/18/17t 20:29; Admin Dose 500 MG; Start 09/18/17 at 21:00 Zinc Sulfate (Zinc Sulfate) 220 mg DAILY PO ; Start 09/19/17 at 09:00 Multivitamins Therapeutic (Theragran) 1 tab DAILY PO ; Start 09/19/17 at 09:00 Docusate Sodium (Colace Liquid Cup) 100 mg BID PO ; Start 09/18/17 at 21:00 Procedures Procedures cxr reviewed CRYSTAL BUTLER Sep 19, 2017 08:25
--- NOTE | 2017-09-19 08:44 | PN ---
Date/Time of Note Date/Time of Note DATE: 09/19/17 TIME: 08:35 Assessment/Plan Lines/Catheters IV Catheter Type (from Nrs): Saline Lock Veliz in Place (from Nrs): No Assessment/Plan Chief Complaint/Hosp Course 1. Large medial lower leg soft tissue hematoma: on daily asa 325mg at home (now stopped) ; no fracture, no dvt, hematoma improved in size but still persistent -elevate leg above heart -pain management -local care -estefanía wrap -monitor closely -I&D again today 2. Syncope: CT head negative -per medical team 3. CHF: bmp >600 -cards consult -cardiac optimization 4. Normocytic normochromic anemia: -monitor -transfuse as needed 5. Electrolyte imbalance -optimize lytes 6. Generalized weakness: 2/2 above -supportive 7. Hypertension -medical management-bp optimization 8. Hypercapnia: no sob, on bipap -per pulm 9. Leukocytosis: persistent, afebrile -as above Thank you. Patient seen and examined in collaboration with Dr. Michael Laguna. Problems: Subjective 24 Hr Interval Summary Feels well. Leukocytosis. Hematoma decreasing in size but still moderate size. No sob. Comfortable at rest. No change in leg sensation, mobility or pulse. No fevers, chills, congested cough, n/v/d/dysuria, sob. Exam/Review of Systems Vital Signs Vitals Vital Signs Date Time Temp Pulse Resp B/P Pulse Ox O2 Delivery O2 Flow Rate FiO2 09/19/17 09:49 86 97 40 09/19/17 09:33 4.0 09/19/17 09:33 20 Nasal Cannula 09/19/17 07:36 98.8 100/54 Intake and Output 09/18/17 09/18/17 09/19/17 15:00 23:00 07:00 Intake Total 500 ml 180 ml Output Total 500 ml 400 ml 800 ml Balance -500 ml 100 ml -620 ml Exam Free Text/Dictation Constitutional: alert, oriented Psych: nl mood/affect, no complaints Head: atraumatic, normocephalic Eyes: nl lids, nl sclera ENMT: mucosa pink and moist, nl nasal mucosa & septum Neck: non-tender, supple Respiratory: diminished breath sounds Cardiovascular: nl pulses, regular rate and rhythm Gastrointestinal: non-tender, other (rotund), soft Musculoskeletal: other (left lower extremity ecchymosis with hematoma ( decreasing in size); +dp pulse/movement/cap refill <3sec) Extremities: normal pulses Neurological: nl mental status, nl speech, nl strength Skin: nl turgor, other (as above) Results Result Diagram: 09/19/17 0711 09/19/17 0711 DOUG CHRISTINE NP Sep 19, 2017 08:44
[2017-09-19] MEDS: DOCUSATE SODIUM 10 MG/ML (10ML CUP) PO SCH ×2 (08:51→21:31)
[2017-09-19] MEDS: ESCITALOPRAM 10 MG TAB PO SCH ×2 (08:53→21:32)
[2017-09-19] MEDS: POTASSIUM CHLORIDE (SR) 10 MEQ TAB PO SCH (08:53)
[2017-09-19] MEDS: CELECOXIB 200 MG CAP PO SCH (08:53)
[2017-09-19] MEDS: ZINC SULFATE 220 MG CAP PO SCH (08:53)
[2017-09-19] MEDS: MULTIVITAMINS THERAPEUTIC TAB PO SCH (08:53)
[2017-09-19] MEDS: TAMSULOSIN (SR) 0.4 MG CAP PO SCH (08:53)
[2017-09-19] MEDS: ALLOPURINOL 100 MG TAB PO SCH (08:53)
[2017-09-19] MEDS: ASCORBIC ACID 500 MG TAB PO SCH ×2 (08:54→21:32)
[2017-09-19] MEDS: NYSTATIN 30 GM POWDER BTL TOP SCH ×2 (08:55→21:32)
[2017-09-19] MEDS: BALSAM PERU/CASTOR OIL 60 GM TUBE TOP SCH (08:55)
[2017-09-19] MEDS: ALBUTEROL/IPRATROPIUM (NEB) 3 ML AMP HHN SCH ×4 (09:33→19:47)
--- NOTE | 2017-09-19 09:52 | CONS ---
Date/Time of Note Date/Time of Note DATE: 09/19/17 TIME: 09:48 Assessment/Plan Assessment/Plan Additional Assessment/Plan Assessment and recommendations; 1. Patient admitted with shortness of breath due to severe hypercapnia with significant improvement on NIV in-hospital intermittently and nocturnally.. 2. Underlying COPD/interstitial lung disease causing chronic hypercapnia and chronic respiratory failure. 3. History of depression. Next 4. Mild anemia. Continue current treatment. NIV for home use is being arranged. Patient to follow-up with his risk management director on an outpatient basis. Consultation Date/Type/Reason Admit Date/Time Sep 15, 2017 at 18:25 Initial Consult Date 09/16/17 Type of Consultation: Pulmonary Referring Provider: CHIOMA WALKER MD 24 HR Interval Summary Free Text/Dictation Patient's condition is stable. Remains awake alert. Denies any shortness of breath. General exam; elderly male, awake alert, currently in no distress. Exam/Review of Systems Vital Signs Vitals Vital Signs Date Time Temp Pulse Resp B/P Pulse Ox O2 Delivery O2 Flow Rate FiO2 09/19/17 09:33 4.0 09/19/17 09:33 89 20 95 Nasal Cannula 09/19/17 07:36 98.8 100/54 09/19/17 00:07 40 Intake and Output 09/18/17 09/18/17 09/19/17 15:00 23:00 07:00 Intake Total 500 ml 180 ml Output Total 500 ml 400 ml 800 ml Balance -500 ml 100 ml -620 ml Exam HEENT exam; supple neck, no JVD. No lymphadenopathy. Midline trachea. No thyromegaly. Patient has only one remaining tooth in the lower jaw. Chest exam; diminished but clear breath sounds. S1-S2 audible, no murmurs. Regular rhythm. Abdomen exam; soft, nontender. No organomegaly. Bowel sounds audible. Next Extremity exam; no edema. 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 Results Result Diagram: 09/19/17 0711 09/19/17 0711 Results 24 hrs Laboratory Tests Test 09/19/17 07:11 White Blood Count 13.1 H Red Blood Count 3.65 L Hemoglobin 11.1 L Hematocrit 35.5 L Mean Corpuscular Volume 97.3 Mean Corpuscular Hemoglobin 30.4 Mean Corpuscular Hemoglobin Concent 31.3 L Red Cell Distribution Width 13.8 Platelet Count 233 Mean Platelet Volume 10.1 Neutrophils % 84.1 H Lymphocytes % 5.5 L Monocytes % 7.9 Eosinophils % 1.8 Basophils % 0.2 Nucleated Red Blood Cells % 0.0 Neutrophils # 11.0 H Lymphocytes # 0.7 L Monocytes # 1.0 H Eosinophils # 0.2 Basophils # 0.0 Nucleated Red Blood Cells # 0.0 Sodium Level 141 Potassium Level 3.8 Chloride Level 88 L Carbon Dioxide Level 49 *H Anion Gap 8 Blood Urea Nitrogen 27 H Creatinine 0.76 Glucose Level 117 Calcium Level 9.3 Medications Medications Current Medications Allopurinol (Zyloprim) 100 mg DAILY PO Last administered on 09/19/17 08:53; Admin Dose 100 MG; Start 09/16/17 at 09:00 Atorvastatin Calcium (Lipitor) 20 mg QHS PO Last administered on 09/18/17 20: 29; Admin Dose 20 MG; Start 09/16/17 at 21:00 Celecoxib (Celebrex) 200 mg DAILY PO Last administered on 09/19/17 08:53; Admin Dose 200 MG; Start 09/16/17 at 09:00 Escitalopram Oxalate (Lexapro) 10 mg BID PO Last administered on 09/19/17 08: 53; Admin Dose 10 MG; Start 09/16/17 at 09:00 Montelukast Sodium (Singulair) 10 mg QHS PO Last administered on 09/18/17 20: 29; Admin Dose 10 MG; Start 09/16/17 at 21:00 Potassium Chloride (Klor-Con 10) 10 meq DAILY PO Last administered on 08:53; Admin Dose 10 MEQ; Start 09/16/17 at 09:00 Tamsulosin HCl (Flomax) 0.4 mg DAILY PO Last administered on 09/19/17 08:53; Admin Dose 0.4 MG; Start 09/16/17 at 09:00 Pantoprazole (Protonix Tab) 40 mg DAILY@06 PO Last administered on 09/19/17 05:18; Admin Dose 40 MG; Start 09/16/17 at 06:00 Acetaminophen (Tylenol Tab) 650 mg Q6H PRN PO PAIN AND OR ELEVATED TEMP Last administered on 09/17/17 12:17; Admin Dose 650 MG; Start 09/16/17 at 02:30 Alendronate Sodium (Fosamax) 70 mg Q7D PO ; Start 09/21/17 at 06:30 Nystatin (Nystatin Powder) 1 applic BID TOP Last administered on 09/19/17 08: 55; Admin Dose 1 APPLIC; Start 09/16/17 at 21:00 Acetaminophen/ Hydrocodone Bitart ([place] (5/325)) 1 tab Q6H PRN PO PAIN LEVEL 4 -6 Last administered on 09/17/17 23:15; Admin Dose 1 TAB; Start 09/17/17 at 13:00 Acetaminophen/ Hydrocodone Bitart ([place] (5/325)) 2 tab Q6H PRN PO SEVERE PAIN LEVEL 7-10 Last administered on 09/18/17 20:30; Admin Dose 2 TAB; Start 09/17 at 13:00 Polyethylene Glycol (Miralax) 17 gm DAILY PRN PO CONSTIPATION Last administered on 09/18/17 14:31; Admin Dose 17 GM; Start 09/18/17 at 14:00 Ascorbic Acid (Vitamin C) 500 mg BID PO Last administered on 09/19/17 08:54; Admin Dose 500 MG; Start 09/18/17 at 21:00 Zinc Sulfate (Zinc Sulfate) 220 mg DAILY PO Last administered on 09/19/17 08: 53; Admin Dose 220 MG; Start 09/19/17 at 09:00 Multivitamins Therapeutic (Theragran) 1 tab DAILY PO Last administered on 09/19 08:53; Admin Dose 1 TAB; Start 09/19/17 at 09:00 Docusate Sodium (Colace Liquid Cup) 100 mg BID PO Last administered on 08:51; Admin Dose 100 MG; Start 09/18/17 at 21:00 TRINA GOMEZ Sep 19, 2017 09:52
[2017-09-19] MEDS ORDERED: HYDROmorphONE 0.5 MG/0.5 ML SYG IV STA (10:39)
--- NOTE | 2017-09-19 10:45 | OPR ---
Date/Time of Note Date/Time of Note DATE: 09/19/17 TIME: 10:43 Operative Report Free Text/Dictation Preoperative Diagnosis Left lower extremity hematoma, recurrent Postoperative Diagnosis Same (solidified) Operation/Procedure Performed Incision and drainage of left lower extremity hematoma Surgeon Aroldo Lopez MD Institutional Custodian Taryn Reese NP Anesthesia Type: other Estimated Blood Loss: 0 - 10 ml's Transfusion none Specimen None Grafts/Implants none Tubes/Drains None Complications none Pt Condition Post Procedure: stable Disposition: other (In room) Indications Per notes R/B/A as per usual and customary d/w patient and and both agree to proceed. Procedure Description Patient was placed supine on his bed. All pressure points padded. He is on abx. Time out done Incision made at inferior margin of the hematoma and drained but because it had become a lot more solidified, not all was drained. Washed with betadine and silver dressing with loose estefanía applied. Patient tolerated procedure well. AROLDO LOPEZ MD Sep 19, 2017 10:45
[2017-09-19] MEDS ORDERED: POTASSIUM CHLORIDE (SR) 20 MEQ TAB PO STA (13:18)
--- NOTE | 2017-09-19 17:12 | PN ---
Date/Time of Note Date/Time of Note DATE: 09/19/17 TIME: 13:11 Assessment/Plan VTE Prophylaxis VTE Prophylaxis Intervention: other Lines/Catheters IV Catheter Type (from Nrs): Saline Lock Urinary Cath still in place: No Assessment/Plan Assessment/Plan A: acute exacerbation of COPD with hypercapnea hematoma lt leg - s/p repeat drainage acute exacerbation of diastolic CHF constipation subclinical hyperthyroid hypokalemia P: await arrangement of home bipap k replacement hold asa, anticoagulants cont current rx discussed with Dr. Laguna, will follow in wound clinic Subjective 24 Hr Interval Summary Free Text/Dictation Pt refused bipap last night, on since this morning. No bm yet. Arrangement of bipap in process. Had repeat drainage of hematoma today, discussed with Dr. aLguna. Exam/Review of Systems Vital Signs Vitals Vital Signs Date Time Temp Pulse Resp B/P Pulse Ox O2 Delivery O2 Flow Rate FiO2 09/19/17 12:17 73 09/19/17 11:33 98.8 21 96/52 96 09/19/17 09:49 40 09/19/17 09:33 4.0 09/19/17 09:33 Nasal Cannula Intake and Output 09/18/17 09/18/17 09/19/17 15:00 23:00 07:00 Intake Total 500 ml 180 ml Output Total 500 ml 400 ml 800 ml Balance -500 ml 100 ml -620 ml Exam gen- on bipap, appears comfortable lungs- mild exp wheeze heart- RRR abd- +BS, soft ext- tr edema rt, lt bandaged Results Result Diagram: 09/19/17 0711 09/19/17 0711 Results 24 hrs Laboratory Tests Test 09/19/17 07:11 White Blood Count 13.1 H Red Blood Count 3.65 L Hemoglobin 11.1 L Hematocrit 35.5 L Mean Corpuscular Volume 97.3 Mean Corpuscular Hemoglobin 30.4 Mean Corpuscular Hemoglobin Concent 31.3 L Red Cell Distribution Width 13.8 Platelet Count 233 Mean Platelet Volume 10.1 Neutrophils % 84.1 H Lymphocytes % 5.5 L Monocytes % 7.9 Eosinophils % 1.8 Basophils % 0.2 Nucleated Red Blood Cells % 0.0 Neutrophils # 11.0 H Lymphocytes # 0.7 L Monocytes # 1.0 H Eosinophils # 0.2 Basophils # 0.0 Nucleated Red Blood Cells # 0.0 Sodium Level 141 Potassium Level 3.8 Chloride Level 88 L Carbon Dioxide Level 49 *H Anion Gap 8 Blood Urea Nitrogen 27 H Creatinine 0.76 Glucose Level 117 Calcium Level 9.3 Medications Medications Current Medications Allopurinol (Zyloprim) 100 mg DAILY PO Last administered on 09/19/17 08:53; Admin Dose 100 MG; Start 09/16/17 at 09:00 Atorvastatin Calcium (Lipitor) 20 mg QHS PO Last administered on 09/18/17 20: 29; Admin Dose 20 MG; Start 09/16/17 at 21:00 Celecoxib (Celebrex) 200 mg DAILY PO Last administered on 09/19/17 08:53; Admin Dose 200 MG; Start 09/16/17 at 09:00 Escitalopram Oxalate (Lexapro) 10 mg BID PO Last administered on 09/19/17 08: 53; Admin Dose 10 MG; Start 09/16/17 at 09:00 Montelukast Sodium (Singulair) 10 mg QHS PO Last administered on 09/18/17 20: 29; Admin Dose 10 MG; Start 09/16/17 at 21:00 Potassium Chloride (Klor-Con 10) 10 meq DAILY PO Last administered on 08:53; Admin Dose 10 MEQ; Start 09/16/17 at 09:00 Tamsulosin HCl (Flomax) 0.4 mg DAILY PO Last administered on 09/19/17 08:53; Admin Dose 0.4 MG; Start 09/16/17 at 09:00 Pantoprazole (Protonix Tab) 40 mg DAILY@06 PO Last administered on 09/19/17 05:18; Admin Dose 40 MG; Start 09/16/17 at 06:00 Acetaminophen (Tylenol Tab) 650 mg Q6H PRN PO PAIN AND OR ELEVATED TEMP Last administered on 09/17/17 12:17; Admin Dose 650 MG; Start 09/16/17 at 02:30 Alendronate Sodium (Fosamax) 70 mg Q7D PO ; Start 09/21/17 at 06:30 Nystatin (Nystatin Powder) 1 applic BID TOP Last administered on 09/19/17 08: 55; Admin Dose 1 APPLIC; Start 09/16/17 at 21:00 Acetaminophen/ Hydrocodone Bitart ([place] (5/325)) 1 tab Q6H PRN PO PAIN LEVEL 4 -6 Last administered on 09/17/17 23:15; Admin Dose 1 TAB; Start 09/17/17 at 13:00 Acetaminophen/ Hydrocodone Bitart ([place] (5/325)) 2 tab Q6H PRN PO SEVERE PAIN LEVEL 7-10 Last administered on 09/18/17 20:30; Admin Dose 2 TAB; Start 09/17 at 13:00 Polyethylene Glycol (Miralax) 17 gm DAILY PRN PO CONSTIPATION Last administered on 09/18/17 14:31; Admin Dose 17 GM; Start 09/18/17 at 14:00 Ascorbic Acid (Vitamin C) 500 mg BID PO Last administered on 09/19/17 08:54; Admin Dose 500 MG; Start 09/18/17 at 21:00 Zinc Sulfate (Zinc Sulfate) 220 mg DAILY PO Last administered on 09/19/17 08: 53; Admin Dose 220 MG; Start 09/19/17 at 09:00 Multivitamins Therapeutic (Theragran) 1 tab DAILY PO Last administered on 09/19 08:53; Admin Dose 1 TAB; Start 09/19/17 at 09:00 Docusate Sodium (Colace Liquid Cup) 100 mg BID PO Last administered on 08:51; Admin Dose 100 MG; Start 09/18/17 at 21:00 CHIOMA WALKER MD Sep 19, 2017 13:21
[2017-09-19] MEDS: ATORVASTATIN 20 MG TAB PO SCH (21:32)
[2017-09-19] MEDS: MONTELUKAST 10 MG TAB PO SCH (21:33)
[2017-09-19] MEDS: HYDROCODONE/APAP (5/325) TAB PO PRN (21:38)
[2017-09-20] VITALS (14 sets, daily range): BP systolic 90–103; BP diastolic 51–64; PULSE 71–86; RESP 18–20
[2017-09-20] MEDS: ACETAMINOPHEN 325 MG TAB PO PRN ×2 (03:28→09:57)
[2017-09-20] MEDS: PANTOPRAZOLE (EC) 40 MG TAB PO SCH (05:45)
[2017-09-20] MEDS: FUROSEMIDE 40 MG TAB PO SCH (05:47)
[2017-09-20 07:39] LABS: BASOPHILS % 0.2 % (0.0-2.0); EOSINOPHILS # 0.3 10^3/ul (0.0-0.5); EOSINOPHILS % 2.6 % (0.0-7.0); HEMATOCRIT 34.7 % (42.0-52.0); HEMOGLOBIN 10.9 g/dl (14.0-18.0); LYMPHOCYTES % 7.5 % (15.0-51.0); MEAN CORPUSCULAR HEMOGLOBIN 30.1 pg (29.0-33.0); MEAN CORPUSCULAR HGB CONC 31.4 g/dl (32.0-37.0); MEAN CORPUSCULAR VOLUME 95.9 fl (82.0-101.0); MONOCYTES % 7.9 % (0.0-11.0); NEUTROPHIL # 10.4 10^3/ul (1.6-7.5); NEUTROPHILS % 81.6 % (39.0-77.0); PLATELET COUNT 228 10^3/UL (140-415); RED BLOOD COUNT 3.62 10^6/ul (4.70-6.10); RED CELL DISTRIBUTION WIDTH 13.6 % (11.5-14.5); WHITE BLOOD COUNT 12.7 10^3/ul (4.8-10.8)
[2017-09-20 07:58] LABS: CALCIUM 9.7 mg/dl (8.4-10.2); CREATININE 0.87 mg/dl (0.61-1.24); POTASSIUM 3.7 mmol/L (3.5-5.1)
[2017-09-20] MEDS: ALBUTEROL/IPRATROPIUM (NEB) 3 ML AMP HHN SCH ×4 (09:05→20:02)
[2017-09-20] MEDS: TAMSULOSIN (SR) 0.4 MG CAP PO SCH (09:57)
[2017-09-20] MEDS: ZINC SULFATE 220 MG CAP PO SCH (09:57)
[2017-09-20] MEDS: CELECOXIB 200 MG CAP PO SCH (09:57)
[2017-09-20] MEDS: MULTIVITAMINS THERAPEUTIC TAB PO SCH (09:57)
[2017-09-20] MEDS: POTASSIUM CHLORIDE (SR) 10 MEQ TAB PO SCH (09:57)
[2017-09-20] MEDS: ASCORBIC ACID 500 MG TAB PO SCH ×2 (09:58→22:00)
[2017-09-20] MEDS: NYSTATIN 30 GM POWDER BTL TOP SCH ×2 (09:58→22:02)
[2017-09-20] MEDS: BALSAM PERU/CASTOR OIL 60 GM TUBE TOP SCH (09:58)
[2017-09-20] MEDS: ESCITALOPRAM 10 MG TAB PO SCH ×2 (09:58→22:01)
[2017-09-20] MEDS: ALLOPURINOL 100 MG TAB PO SCH (09:58)
[2017-09-20] MEDS: DOCUSATE SODIUM 10 MG/ML (10ML CUP) PO SCH ×2 (10:05→22:00)
[2017-09-20] MEDS ORDERED: POTASSIUM CHLORIDE (SR) 20 MEQ TAB PO STA (13:55)
--- NOTE | 2017-09-20 13:55 | PN ---
Date/Time of Note Date/Time of Note DATE: 09/20/17 TIME: 13:50 Assessment/Plan VTE Prophylaxis VTE Prophylaxis Intervention: other Lines/Catheters IV Catheter Type (from Nrs): Saline Lock Urinary Cath still in place: No Assessment/Plan Assessment/Plan A: copd exacerbation with hypercapnea improved with bipap hematoma lt leg s/p drainage x2 last yesterday acute on chronic diastolic HF constipation hypokalemia P: additional kcl dec lasix to daily PT eval cont other rx Subjective 24 Hr Interval Summary Free Text/Dictation Pt still at times agitated, but overall better. Bipap helps. Breathing at baseline. No significant bm yet per /pt, though nurse's note says huge bm. No abd pain, n/v, cp. Appetite improving. Exam/Review of Systems Vital Signs Vitals Vital Signs Date Time Temp Pulse Resp B/P Pulse Ox O2 Delivery O2 Flow Rate FiO2 09/20/17 12:56 81 20 96 Nasal Cannula 4.0 09/20/17 11:52 98.3 92/53 09/20/17 00:41 40 Intake and Output 09/19/17 09/19/17 09/20/17 14:59 22:59 06:59 Intake Total 1160 ml 420 ml Output Total 550 ml 680 ml Balance 610 ml -260 ml Exam gen- nad, nontoxic lungs- sl dec breath sounds bases, otherwise clear heart- RRR abd- +BS, soft, nontender ext- tr edema, lt leg bandaged Results Result Diagram: 09/20/17 0655 09/20/17 0655 Results 24 hrs Laboratory Tests Test 09/20/17 06:55 White Blood Count 12.7 H Red Blood Count 3.62 L Hemoglobin 10.9 L Hematocrit 34.7 L Mean Corpuscular Volume 95.9 Mean Corpuscular Hemoglobin 30.1 Mean Corpuscular Hemoglobin Concent 31.4 L Red Cell Distribution Width 13.6 Platelet Count 228 Mean Platelet Volume 10.0 Neutrophils % 81.6 H Lymphocytes % 7.5 L Monocytes % 7.9 Eosinophils % 2.6 Basophils % 0.2 Nucleated Red Blood Cells % 0.0 Neutrophils # 10.4 H Lymphocytes # 1.0 Monocytes # 1.0 H Eosinophils # 0.3 Basophils # 0.0 Nucleated Red Blood Cells # 0.0 Sodium Level 137 Potassium Level 3.7 Chloride Level 86 L Carbon Dioxide Level 48 *H Anion Gap 7 L Blood Urea Nitrogen 34 H Creatinine 0.87 Glucose Level 122 Calcium Level 9.7 Medications Medications Current Medications Allopurinol (Zyloprim) 100 mg DAILY PO Last administered on 09/20/17 09:58; Admin Dose 100 MG; Start 09/16/17 at 09:00 Atorvastatin Calcium (Lipitor) 20 mg QHS PO Last administered on 09/19/17 21: 32; Admin Dose 20 MG; Start 09/16/17 at 21:00 Celecoxib (Celebrex) 200 mg DAILY PO Last administered on 09/20/17 09:57; Admin Dose 200 MG; Start 09/16/17 at 09:00 Escitalopram Oxalate (Lexapro) 10 mg BID PO Last administered on 09/20/17 09: 58; Admin Dose 10 MG; Start 09/16/17 at 09:00 Montelukast Sodium (Singulair) 10 mg QHS PO Last administered on 09/19/17 21: 33; Admin Dose 10 MG; Start 09/16/17 at 21:00 Potassium Chloride (Klor-Con 10) 10 meq DAILY PO Last administered on 09:57; Admin Dose 10 MEQ; Start 09/16/17 at 09:00 Tamsulosin HCl (Flomax) 0.4 mg DAILY PO Last administered on 09/20/17 09:57; Admin Dose 0.4 MG; Start 09/16/17 at 09:00 Pantoprazole (Protonix Tab) 40 mg DAILY@06 PO Last administered on 09/20/17 05:45; Admin Dose 40 MG; Start 09/16/17 at 06:00 Acetaminophen (Tylenol Tab) 650 mg Q6H PRN PO PAIN AND OR ELEVATED TEMP Last administered on 09/20/17 09:57; Admin Dose 650 MG; Start 09/16/17 at 02:30 Alendronate Sodium (Fosamax) 70 mg Q7D PO ; Start 09/21/17 at 06:30 Nystatin (Nystatin Powder) 1 applic BID TOP Last administered on 09/20/17 09: 58; Admin Dose 1 APPLIC; Start 09/16/17 at 21:00 Acetaminophen/ Hydrocodone Bitart ([place] (5/325)) 1 tab Q6H PRN PO PAIN LEVEL 4 -6 Last administered on 09/19/17 21:38; Admin Dose 1 TAB; Start 09/17/17 at 13:00 Acetaminophen/ Hydrocodone Bitart ([place] (5/325)) 2 tab Q6H PRN PO SEVERE PAIN LEVEL 7-10 Last administered on 09/18/17 20:30; Admin Dose 2 TAB; Start 09/17 at 13:00 Polyethylene Glycol (Miralax) 17 gm DAILY PRN PO CONSTIPATION Last administered on 09/18/17 14:31; Admin Dose 17 GM; Start 09/18/17 at 14:00 Ascorbic Acid (Vitamin C) 500 mg BID PO Last administered on 09/20/17 09:58; Admin Dose 500 MG; Start 09/18/17 at 21:00 Zinc Sulfate (Zinc Sulfate) 220 mg DAILY PO Last administered on 09/20/17 09: 57; Admin Dose 220 MG; Start 09/19/17 at 09:00 Multivitamins Therapeutic (Theragran) 1 tab DAILY PO Last administered on 09/20 09:57; Admin Dose 1 TAB; Start 09/19/17 at 09:00 Docusate Sodium (Colace Liquid Cup) 100 mg BID PO Last administered on 10:05; Admin Dose 100 MG; Start 09/18/17 at 21:00 CHIOMA WALKER MD Sep 20, 2017 13:55
--- NOTE | 2017-09-20 14:17 | CONS ---
Date/Time of Note Date/Time of Note DATE: 09/20/17 TIME: 14:13 Consult Date/Type/Reason Admit Date/Time Sep 15, 2017 at 18:25 Initial Consult Date 09/16/17 Type of Consultation: Pulmonary Ordering Provider: CHIOMA WALKER MD Subjective Comfortable but confused. Objective Vital Signs Date Time Temp Pulse Resp B/P Pulse Ox O2 Delivery O2 Flow Rate FiO2 09/20/17 12:56 81 20 96 Nasal Cannula 4.0 09/20/17 11:52 98.3 92/53 09/20/17 00:41 40 Intake and Output 09/19/17 09/19/17 09/20/17 15:00 23:00 07:00 Intake Total 1160 ml 420 ml Output Total 550 ml 680 ml Balance 610 ml -260 ml Exam GENERAL: Clear ill-appearing gentleman comfortable at rest no acute distress nasal cannula O2. VITAL SIGNS: per chart NECK: Supple. No JVD or lymphadenopathy. CARDIAC EXAM: S1, S2. No added sounds or murmurs. CHEST: clear bilaterally, No added sounds, rales or wheezes ABDOMEN: Soft, nontender. No guarding or rebound. EXTREMITIES: No cyanosis, clubbing or edema. NEUROLOGIC: Generalized weakness. Results/Medications Result Diagram: 09/20/17 0655 09/20/17 0655 Results 24 hrs Laboratory Tests Test 09/20/17 06:55 White Blood Count 12.7 H Red Blood Count 3.62 L Hemoglobin 10.9 L Hematocrit 34.7 L Mean Corpuscular Volume 95.9 Mean Corpuscular Hemoglobin 30.1 Mean Corpuscular Hemoglobin Concent 31.4 L Red Cell Distribution Width 13.6 Platelet Count 228 Mean Platelet Volume 10.0 Neutrophils % 81.6 H Lymphocytes % 7.5 L Monocytes % 7.9 Eosinophils % 2.6 Basophils % 0.2 Nucleated Red Blood Cells % 0.0 Neutrophils # 10.4 H Lymphocytes # 1.0 Monocytes # 1.0 H Eosinophils # 0.3 Basophils # 0.0 Nucleated Red Blood Cells # 0.0 Sodium Level 137 Potassium Level 3.7 Chloride Level 86 L Carbon Dioxide Level 48 *H Anion Gap 7 L Blood Urea Nitrogen 34 H Creatinine 0.87 Glucose Level 122 Calcium Level 9.7 Medications Current Medications Allopurinol (Zyloprim) 100 mg DAILY PO Last administered on 09/20/17t 09:58; Admin Dose 100 MG; Start 09/16/17 at 09:00 Atorvastatin Calcium (Lipitor) 20 mg QHS PO Last administered on 09/19/17 21: 32; Admin Dose 20 MG; Start 09/16/17 at 21:00 Celecoxib (Celebrex) 200 mg DAILY PO Last administered on 09/20/17 09:57; Admin Dose 200 MG; Start 09/16/17 at 09:00 Escitalopram Oxalate (Lexapro) 10 mg BID PO Last administered on 09/20/17 09: 58; Admin Dose 10 MG; Start 09/16/17 at 09:00 Montelukast Sodium (Singulair) 10 mg QHS PO Last administered on 09/19/17 21: 33; Admin Dose 10 MG; Start 09/16/17 at 21:00 Potassium Chloride (Klor-Con 10) 10 meq DAILY PO Last administered on 09:57; Admin Dose 10 MEQ; Start 09/16/17 at 09:00 Tamsulosin HCl (Flomax) 0.4 mg DAILY PO Last administered on 09/20/17 09:57; Admin Dose 0.4 MG; Start 09/16/17 at 09:00 Pantoprazole (Protonix Tab) 40 mg DAILY@06 PO Last administered on 09/20/17 05:45; Admin Dose 40 MG; Start 09/16/17 at 06:00 Acetaminophen (Tylenol Tab) 650 mg Q6H PRN PO PAIN AND OR ELEVATED TEMP Last administered on 09/20/17 09:57; Admin Dose 650 MG; Start 09/16/17 at 02:30 Alendronate Sodium (Fosamax) 70 mg Q7D PO ; Start 09/21/17 at 06:30 Nystatin (Nystatin Powder) 1 applic BID TOP Last administered on 09/20/17 09: 58; Admin Dose 1 APPLIC; Start 09/16/17 at 21:00 Acetaminophen/ Hydrocodone Bitart ([place] (5/325)) 1 tab Q6H PRN PO PAIN LEVEL 4 -6 Last administered on 09/19/17 21:38; Admin Dose 1 TAB; Start 09/17/17 at 13:00 Acetaminophen/ Hydrocodone Bitart ([place] (5/325)) 2 tab Q6H PRN PO SEVERE PAIN LEVEL 7-10 Last administered on 09/18/17 20:30; Admin Dose 2 TAB; Start 09/17 at 13:00 Polyethylene Glycol (Miralax) 17 gm DAILY PRN PO CONSTIPATION Last administered on 09/18/17 14:31; Admin Dose 17 GM; Start 09/18/17 at 14:00 Ascorbic Acid (Vitamin C) 500 mg BID PO Last administered on 09/20/17 09:58; Admin Dose 500 MG; Start 09/18/17 at 21:00 Zinc Sulfate (Zinc Sulfate) 220 mg DAILY PO Last administered on 09/20/17 09: 57; Admin Dose 220 MG; Start 09/19/17 at 09:00 Multivitamins Therapeutic (Theragran) 1 tab DAILY PO Last administered on 09/20 09:57; Admin Dose 1 TAB; Start 09/19/17 at 09:00 Docusate Sodium (Colace Liquid Cup) 100 mg BID PO Last administered on 10:05; Admin Dose 100 MG; Start 09/18/17 at 21:00 Furosemide (Lasix) 40 mg DAILY PO ; Start 09/21/17 at 09:00 Assessment/Plan Chief Complaint/Hosp Course Assessment. 1. Patient admitted with shortness of breath due to severe hypercapnia with significant improvement on NIV in-hospital intermittently and nocturnally.. 2. Underlying COPD/interstitial lung disease causing chronic hypercapnia and chronic respiratory failure. 3. History of depression. 4. Mild anemia. Plan. Decrease O2 as tolerated Aspiration precautions Continue antibiotics. Problems: [facility] BARNEY [facility] Sep 20, 2017 14:17
[2017-09-20] MEDS: ATORVASTATIN 20 MG TAB PO SCH (22:00)
[2017-09-20] MEDS: MONTELUKAST 10 MG TAB PO SCH (22:01)
[2017-09-21] VITALS (16 sets, daily range): BP systolic 92–178; BP diastolic 53–77; PULSE 73–95; RESP 18–19
[2017-09-21] MEDS: ACETAMINOPHEN 325 MG TAB PO PRN (05:19)
[2017-09-21] MEDS: PANTOPRAZOLE (EC) 40 MG TAB PO SCH (05:19)
[2017-09-21] MEDS ORDERED: ALENDRONATE 70 MG TAB PO SCH (06:30)
[2017-09-21 06:54] LABS: BASOPHILS % 0.2 % (0.0-2.0); EOSINOPHILS # 0.3 10^3/ul (0.0-0.5); EOSINOPHILS % 2.5 % (0.0-7.0); HEMATOCRIT 34.5 % (42.0-52.0); HEMOGLOBIN 11.1 g/dl (14.0-18.0); LYMPHOCYTES # 0.9 10^3/ul (0.8-2.9); LYMPHOCYTES % 7.7 % (15.0-51.0); MEAN CORPUSCULAR HEMOGLOBIN 30.3 pg (29.0-33.0); MEAN CORPUSCULAR HGB CONC 32.2 g/dl (32.0-37.0); MEAN CORPUSCULAR VOLUME 94.3 fl (82.0-101.0); MEAN PLATELET VOLUME 10.3 fl (7.4-10.4); MONOCYTES % 8.1 % (0.0-11.0); NEUTROPHIL # 9.8 10^3/ul (1.6-7.5); NEUTROPHILS % 81.1 % (39.0-77.0); PLATELET COUNT 226 10^3/UL (140-415); RED BLOOD COUNT 3.66 10^6/ul (4.70-6.10); RED CELL DISTRIBUTION WIDTH 13.6 % (11.5-14.5); WHITE BLOOD COUNT 12.1 10^3/ul (4.8-10.8)
[2017-09-21 08:12] LABS: CALCIUM 9.9 mg/dl (8.4-10.2); CREATININE 0.74 mg/dl (0.61-1.24); POTASSIUM 4.2 mmol/L (3.5-5.1)
[2017-09-21] MEDS: DOCUSATE SODIUM 10 MG/ML (10ML CUP) PO SCH (09:00)
[2017-09-21] MEDS: POTASSIUM CHLORIDE (SR) 10 MEQ TAB PO SCH (09:16)
[2017-09-21] MEDS: ZINC SULFATE 220 MG CAP PO SCH (09:18)
[2017-09-21] MEDS: ASCORBIC ACID 500 MG TAB PO SCH ×2 (09:19→21:04)
[2017-09-21] MEDS: FUROSEMIDE 40 MG TAB PO SCH (09:19)
[2017-09-21] MEDS: CELECOXIB 200 MG CAP PO SCH (09:20)
[2017-09-21] MEDS: ALLOPURINOL 100 MG TAB PO SCH (09:20)
[2017-09-21] MEDS: ESCITALOPRAM 10 MG TAB PO SCH ×2 (09:20→21:04)
[2017-09-21] MEDS: MULTIVITAMINS THERAPEUTIC TAB PO SCH (09:20)
[2017-09-21] MEDS: NYSTATIN 30 GM POWDER BTL TOP SCH ×2 (09:21→21:04)
[2017-09-21] MEDS: BALSAM PERU/CASTOR OIL 60 GM TUBE TOP SCH (09:21)
[2017-09-21] MEDS: TAMSULOSIN (SR) 0.4 MG CAP PO SCH (09:21)
[2017-09-21] MEDS: ALBUTEROL/IPRATROPIUM (NEB) 3 ML AMP HHN SCH ×4 (09:28→20:31)
--- NOTE | 2017-09-21 12:52 | CONS ---
Date/Time of Note Date/Time of Note DATE: 09/21/17 TIME: 12:52 Consult Date/Type/Reason Admit Date/Time Sep 15, 2017 at 18:25 Initial Consult Date 09/16/17 Type of Consultation: Pulmonary Ordering Provider: CHIOMA WALKER MD Subjective Patient doing okay this morning. Mild confusion but no significant respiratory distress. Objective Vital Signs Date Time Temp Pulse Resp B/P Pulse Ox O2 Delivery O2 Flow Rate FiO2 09/21/17 12:12 92 09/21/17 09:29 18 96 Nasal Cannula 4.0 09/21/17 09:15 103/63 09/21/17 08:20 99.0 09/21/17 02:40 40 Intake and Output 09/20/17 09/20/17 09/21/17 15:00 23:00 07:00 Intake Total 500 ml Output Total 775 ml Balance -275 ml Exam GENERAL: Chronically ill-appearing gentleman comfortable at rest no acute distress nasal cannula O2. VITAL SIGNS: per chart NECK: Supple. No JVD or lymphadenopathy. CARDIAC EXAM: S1, S2. No added sounds or murmurs. CHEST: clear bilaterally, No added sounds, rales or wheezes ABDOMEN: Soft, nontender. No guarding or rebound. EXTREMITIES: No cyanosis, clubbing or edema. NEUROLOGIC: Generalized weakness. Results/Medications Result Diagram: 09/21/17 0623 09/21/17 0623 Results 24 hrs Laboratory Tests Test 09/21/17 06:23 White Blood Count 12.1 H Red Blood Count 3.66 L Hemoglobin 11.1 L Hematocrit 34.5 L Mean Corpuscular Volume 94.3 Mean Corpuscular Hemoglobin 30.3 Mean Corpuscular Hemoglobin Concent 32.2 Red Cell Distribution Width 13.6 Platelet Count 226 Mean Platelet Volume 10.3 Neutrophils % 81.1 H Lymphocytes % 7.7 L Monocytes % 8.1 Eosinophils % 2.5 Basophils % 0.2 Nucleated Red Blood Cells % 0.0 Neutrophils # 9.8 H Lymphocytes # 0.9 Monocytes # 1.0 H Eosinophils # 0.3 Basophils # 0.0 Nucleated Red Blood Cells # 0.0 Sodium Level 136 Potassium Level 4.2 Chloride Level 91 L Carbon Dioxide Level 40 H Anion Gap 9 Blood Urea Nitrogen 39 H Creatinine 0.74 Glucose Level 114 Calcium Level 9.9 Medications Current Medications Allopurinol (Zyloprim) 100 mg DAILY PO Last administered on 09/21/17 09:20; Admin Dose 100 MG; Start 09/16/17 at 09:00 Atorvastatin Calcium (Lipitor) 20 mg QHS PO Last administered on 09/20/17 22: 00; Admin Dose 20 MG; Start 09/16/17 at 21:00 Celecoxib (Celebrex) 200 mg DAILY PO Last administered on 09/21/17 09:20; Admin Dose 200 MG; Start 09/16/17 at 09:00 Escitalopram Oxalate (Lexapro) 10 mg BID PO Last administered on 09/21/17 09: 20; Admin Dose 10 MG; Start 09/16/17 at 09:00 Montelukast Sodium (Singulair) 10 mg QHS PO Last administered on 09/20/17 22: 01; Admin Dose 10 MG; Start 09/16/17 at 21:00 Potassium Chloride (Klor-Con 10) 10 meq DAILY PO Last administered on 09:16; Admin Dose 10 MEQ; Start 09/16/17 at 09:00 Tamsulosin HCl (Flomax) 0.4 mg DAILY PO Last administered on 09/21/17 09:21; Admin Dose 0.4 MG; Start 09/16/17 at 09:00 Pantoprazole (Protonix Tab) 40 mg DAILY@06 PO Last administered on 09/21/17 05:19; Admin Dose 40 MG; Start 09/16/17 at 06:00 Acetaminophen (Tylenol Tab) 650 mg Q6H PRN PO PAIN AND OR ELEVATED TEMP Last administered on 09/21/17 05:19; Admin Dose 650 MG; Start 09/16/17 at 02:30 Alendronate Sodium (Fosamax) 70 mg Q7D PO ; Start 09/21/17 at 06:30 Nystatin (Nystatin Powder) 1 applic BID TOP Last administered on 09/21/17 09: 21; Admin Dose 1 APPLIC; Start 09/16/17 at 21:00 Acetaminophen/ Hydrocodone Bitart ([place] (5/325)) 1 tab Q6H PRN PO PAIN LEVEL 4 -6 Last administered on 09/19/17 21:38; Admin Dose 1 TAB; Start 09/17/17 at 13:00 Acetaminophen/ Hydrocodone Bitart ([place] (5/325)) 2 tab Q6H PRN PO SEVERE PAIN LEVEL 7-10 Last administered on 09/18/17 20:30; Admin Dose 2 TAB; Start 09/17 at 13:00 Polyethylene Glycol (Miralax) 17 gm DAILY PRN PO CONSTIPATION Last administered on 09/18/17 14:31; Admin Dose 17 GM; Start 09/18/17 at 14:00 Ascorbic Acid (Vitamin C) 500 mg BID PO Last administered on 09/21/17 09:19; Admin Dose 500 MG; Start 09/18/17 at 21:00 Zinc Sulfate (Zinc Sulfate) 220 mg DAILY PO Last administered on 09/21/17 09: 18; Admin Dose 220 MG; Start 09/19/17 at 09:00 Multivitamins Therapeutic (Theragran) 1 tab DAILY PO Last administered on 09/21 09:20; Admin Dose 1 TAB; Start 09/19/17 at 09:00 Docusate Sodium (Colace Liquid Cup) 100 mg BID PO Last administered on 22:00; Admin Dose 100 MG; Start 09/18/17 at 21:00 Furosemide (Lasix) 40 mg DAILY PO Last administered on 09/21/17 09:19; Admin Dose 40 MG; Start 09/21/17 at 09:00 Assessment/Plan Chief Complaint/Hosp Course Assessment. 1. Patient admitted with shortness of breath due to severe hypercapnia with significant improvement on NIV in-hospital intermittently and nocturnally.. 2. Underlying COPD/interstitial lung disease causing chronic hypercapnia and chronic respiratory failure. 3. History of depression. 4. Mild anemia. 5. Encephalopathy toxic metabolic Plan. Decrease O2 as tolerated Aspiration precautions Continue antibiotics. Avoid sedatives and benzodiazepines. Problems: [facility] BARNEY MD, [facility] Sep 21, 2017 12:52
--- NOTE | 2017-09-21 13:23 | PN ---
Date/Time of Note Date/Time of Note DATE: 09/21/17 TIME: 13:18 Assessment/Plan VTE Prophylaxis VTE Prophylaxis Intervention: other Lines/Catheters IV Catheter Type (from Nrs): Saline Lock Urinary Cath still in place: No (condom cath) Assessment/Plan Assessment/Plan A: copd exacerbation with hypercapnea - doing better on intermittent bipap hematoma lt leg s/p drainage x2 acute on chronic diastolic HF hypokalemia corrected P: decrease colace await PT eval, ambulation cont other rx Subjective 24 Hr Interval Summary Free Text/Dictation Pt not seen by PT yet. Feeling better slowly. Breathing at baseline. No cp. Had multiple bms since yesterday. Exam/Review of Systems Vital Signs Vitals Vital Signs Date Time Temp Pulse Resp B/P Pulse Ox O2 Delivery O2 Flow Rate FiO2 09/21/17 12:58 98.1 89 18 105/55 97 09/21/17 09:29 Nasal Cannula 4.0 09/21/17 02:40 40 Intake and Output 09/20/17 09/20/17 09/21/17 15:00 23:00 07:00 Intake Total 500 ml Output Total 775 ml Balance -275 ml Exam gen- nad lung- decreased bs bases, otherwise clear heart- RRR abd- +BS, soft, nontender ext- tr edema, lt leg bandaged Results Result Diagram: 09/21/17 0609/21/17 0623 Results 24 hrs Laboratory Tests Test 09/21/17 06:23 White Blood Count 12.1 H Red Blood Count 3.66 L Hemoglobin 11.1 L Hematocrit 34.5 L Mean Corpuscular Volume 94.3 Mean Corpuscular Hemoglobin 30.3 Mean Corpuscular Hemoglobin Concent 32.2 Red Cell Distribution Width 13.6 Platelet Count 226 Mean Platelet Volume 10.3 Neutrophils % 81.1 H Lymphocytes % 7.7 L Monocytes % 8.1 Eosinophils % 2.5 Basophils % 0.2 Nucleated Red Blood Cells % 0.0 Neutrophils # 9.8 H Lymphocytes # 0.9 Monocytes # 1.0 H Eosinophils # 0.3 Basophils # 0.0 Nucleated Red Blood Cells # 0.0 Sodium Level 136 Potassium Level 4.2 Chloride Level 91 L Carbon Dioxide Level 40 H Anion Gap 9 Blood Urea Nitrogen 39 H Creatinine 0.74 Glucose Level 114 Calcium Level 9.9 Medications Medications Current Medications Allopurinol (Zyloprim) 100 mg DAILY PO Last administered on 09/21/17 09:20; Admin Dose 100 MG; Start 09/16/17 at 09:00 Atorvastatin Calcium (Lipitor) 20 mg QHS PO Last administered on 09/20/17 22: 00; Admin Dose 20 MG; Start 09/16/17 at 21:00 Celecoxib (Celebrex) 200 mg DAILY PO Last administered on 09/21/17 09:20; Admin Dose 200 MG; Start 09/16/17 at 09:00 Escitalopram Oxalate (Lexapro) 10 mg BID PO Last administered on 09/21/17 09: 20; Admin Dose 10 MG; Start 09/16/17 at 09:00 Montelukast Sodium (Singulair) 10 mg QHS PO Last administered on 09/20/17 22: 01; Admin Dose 10 MG; Start 09/16/17 at 21:00 Potassium Chloride (Klor-Con 10) 10 meq DAILY PO Last administered on 09:16; Admin Dose 10 MEQ; Start 09/16/17 at 09:00 Tamsulosin HCl (Flomax) 0.4 mg DAILY PO Last administered on 09/21/17 09:21; Admin Dose 0.4 MG; Start 09/16/17 at 09:00 Pantoprazole (Protonix Tab) 40 mg DAILY@06 PO Last administered on 09/21/17 05:19; Admin Dose 40 MG; Start 09/16/17 at 06:00 Acetaminophen (Tylenol Tab) 650 mg Q6H PRN PO PAIN AND OR ELEVATED TEMP Last administered on 09/21/17 05:19; Admin Dose 650 MG; Start 09/16/17 at 02:30 Alendronate Sodium (Fosamax) 70 mg Q7D PO ; Start 09/21/17 at 06:30 Nystatin (Nystatin Powder) 1 applic BID TOP Last administered on 09/21/17 09: 21; Admin Dose 1 APPLIC; Start 09/16/17 at 21:00 Acetaminophen/ Hydrocodone Bitart ([place] (5/325)) 1 tab Q6H PRN PO PAIN LEVEL 4 -6 Last administered on 09/19/17 21:38; Admin Dose 1 TAB; Start 09/17/17 at 13:00 Acetaminophen/ Hydrocodone Bitart ([place] (5/325)) 2 tab Q6H PRN PO SEVERE PAIN LEVEL 7-10 Last administered on 09/18/17 20:30; Admin Dose 2 TAB; Start 09/17 at 13:00 Polyethylene Glycol (Miralax) 17 gm DAILY PRN PO CONSTIPATION Last administered on 09/18/17 14:31; Admin Dose 17 GM; Start 09/18/17 at 14:00 Ascorbic Acid (Vitamin C) 500 mg BID PO Last administered on 09/21/17 09:19; Admin Dose 500 MG; Start 09/18/17 at 21:00 Zinc Sulfate (Zinc Sulfate) 220 mg DAILY PO Last administered on 09/21/17 09: 18; Admin Dose 220 MG; Start 09/19/17 at 09:00 Multivitamins Therapeutic (Theragran) 1 tab DAILY PO Last administered on 09/21 09:20; Admin Dose 1 TAB; Start 09/19/17 at 09:00 Docusate Sodium (Colace Liquid Cup) 100 mg BID PO Last administered on 22:00; Admin Dose 100 MG; Start 09/18/17 at 21:00 Furosemide (Lasix) 40 mg DAILY PO Last administered on 09/21/17 09:19; Admin Dose 40 MG; Start 09/21/17 at 09:00 CHIOMA WALKER MD Sep 21, 2017 13:23
[2017-09-21] MEDS: MONTELUKAST 10 MG TAB PO SCH (21:04)
[2017-09-21] MEDS: ATORVASTATIN 20 MG TAB PO SCH (21:04)
[2017-09-22] VITALS (12 sets, daily range): BP systolic 99–117; BP diastolic 56–58; PULSE 67–87; RESP 18–20
[2017-09-22] MEDS: PANTOPRAZOLE (EC) 40 MG TAB PO SCH (05:55)
[2017-09-22] MEDS: ALBUTEROL/IPRATROPIUM (NEB) 3 ML AMP HHN SCH ×3 (08:08→16:30)
[2017-09-22] MEDS: BALSAM PERU/CASTOR OIL 60 GM TUBE TOP SCH (09:00)
[2017-09-22] MEDS ORDERED: DOCUSATE SODIUM 10 MG/ML (10ML CUP) PO SCH (09:00)
[2017-09-22] MEDS: TAMSULOSIN (SR) 0.4 MG CAP PO SCH (09:41)
[2017-09-22] MEDS: POTASSIUM CHLORIDE (SR) 10 MEQ TAB PO SCH (09:41)
[2017-09-22] MEDS: ESCITALOPRAM 10 MG TAB PO SCH (09:41)
[2017-09-22] MEDS: ASCORBIC ACID 500 MG TAB PO SCH (09:41)
[2017-09-22] MEDS: CELECOXIB 200 MG CAP PO SCH (09:41)
[2017-09-22] MEDS: ZINC SULFATE 220 MG CAP PO SCH (09:42)
[2017-09-22] MEDS: ALLOPURINOL 100 MG TAB PO SCH (09:42)
[2017-09-22] MEDS: FUROSEMIDE 40 MG TAB PO SCH (09:42)
[2017-09-22] MEDS: MULTIVITAMINS THERAPEUTIC TAB PO SCH (09:42)
[2017-09-22] MEDS: NYSTATIN 30 GM POWDER BTL TOP SCH (09:43)
[2017-09-22 10:12] LABS: BASOPHILS % 0.3 % (0.0-2.0); EOSINOPHILS # 0.3 10^3/ul (0.0-0.5); EOSINOPHILS % 2.9 % (0.0-7.0); HEMATOCRIT 35.5 % (42.0-52.0); HEMOGLOBIN 11.2 g/dl (14.0-18.0); LYMPHOCYTES # 1.4 10^3/ul (0.8-2.9); LYMPHOCYTES % 12.7 % (15.0-51.0); MEAN CORPUSCULAR HEMOGLOBIN 29.9 pg (29.0-33.0); MEAN CORPUSCULAR HGB CONC 31.5 g/dl (32.0-37.0); MEAN CORPUSCULAR VOLUME 94.7 fl (82.0-101.0); MEAN PLATELET VOLUME 10.1 fl (7.4-10.4); MONOCYTES % 8.7 % (0.0-11.0); NEUTROPHIL # 8.4 10^3/ul (1.6-7.5); NEUTROPHILS % 74.9 % (39.0-77.0); PLATELET COUNT 263 10^3/UL (140-415); RED BLOOD COUNT 3.75 10^6/ul (4.70-6.10); RED CELL DISTRIBUTION WIDTH 13.7 % (11.5-14.5); WHITE BLOOD COUNT 11.2 10^3/ul (4.8-10.8)
[2017-09-22 10:45] LABS: CALCIUM 9.9 mg/dl (8.4-10.2); CREATININE 0.75 mg/dl (0.61-1.24)
--- NOTE | 2017-09-22 11:28 | CONS ---
Date/Time of Note Date/Time of Note DATE: 09/22/17 TIME: 11:26 Assessment/Plan Assessment/Plan Additional Assessment/Plan Assessment and recommendations; 1. Patient admitted with severe hypercapnic respiratory failure likely acute on chronic with significant interval improvement. Patient doing well on BiPAP nocturnally as well as intermittently in the daytime. Home BiPAP has already been arranged. 2. History of gout. 3. History of mild depression. 4. COPD/interstitial lung disease. Continue current treatment. Patient awaiting discharge. Consultation Date/Type/Reason Admit Date/Time Sep 15, 2017 at 18:25 Initial Consult Date 09/16/17 Type of Consultation: Pulmonary Referring Provider: CHIOMA WALKER MD 24 HR Interval Summary Free Text/Dictation Patient's condition is stable. Denies any shortness of breath. General exam; elderly male, awake and alert. Currently in no distress. Having breakfast on bed. Exam/Review of Systems Vital Signs Vitals Vital Signs Date Time Temp Pulse Resp B/P Pulse Ox O2 Delivery O2 Flow Rate FiO2 09/22/17 08:11 77 20 95 Nasal Cannula 3.0 09/22/17 08:06 98.3 117/58 09/22/17 03:00 40 Intake and Output 09/21/17 09/21/17 09/22/17 15:00 23:00 07:00 Intake Total 240 ml 600 ml Output Total 600 ml 300 ml Balance -360 ml 300 ml Exam HEENT exam; supple neck, no JVD. No lymphadenopathy. Midline trachea. No thyromegaly. Pharynx is clear. Patient has 1 remaining tooth in lower jaw. Chest exam; diminished but clear breath sounds. S1-S2 audible, no murmurs. Regular rhythm. Abdomen exam; soft, nontender. No organomegaly. Bowel sounds audible. Extremity exam; no edema. Patient has a multiple ecchymosis involving all 4 extremities. [employer] exam; no focal deficit. Results Result Diagram: 09/22/17 0922 09/21/17 0623 Results 24 hrs Laboratory Tests Test 09/22/17 09:22 White Blood Count 11.2 H Red Blood Count 3.75 L Hemoglobin 11.2 L Hematocrit 35.5 L Mean Corpuscular Volume 94.7 Mean Corpuscular Hemoglobin 29.9 Mean Corpuscular Hemoglobin Concent 31.5 L Red Cell Distribution Width 13.7 Platelet Count 263 Mean Platelet Volume 10.1 Neutrophils % 74.9 Lymphocytes % 12.7 L Monocytes % 8.7 Eosinophils % 2.9 Basophils % 0.3 Nucleated Red Blood Cells % 0.0 Neutrophils # 8.4 H Lymphocytes # 1.4 Monocytes # 1.0 H Eosinophils # 0.3 Basophils # 0.0 Nucleated Red Blood Cells # 0.0 Medications Medications Current Medications Allopurinol (Zyloprim) 100 mg DAILY PO Last administered on 09/22/17 09:42; Admin Dose 100 MG; Start 09/16/17 at 09:00 Atorvastatin Calcium (Lipitor) 20 mg QHS PO Last administered on 09/21/17 21: 04; Admin Dose 20 MG; Start 09/16/17 at 21:00 Celecoxib (Celebrex) 200 mg DAILY PO Last administered on 09/22/17 09:41; Admin Dose 200 MG; Start 09/16/17 at 09:00 Escitalopram Oxalate (Lexapro) 10 mg BID PO Last administered on 09/22/17 09: 41; Admin Dose 10 MG; Start 09/16/17 at 09:00 Montelukast Sodium (Singulair) 10 mg QHS PO Last administered on 09/21/17 21: 04; Admin Dose 10 MG; Start 09/16/17 at 21:00 Potassium Chloride (Klor-Con 10) 10 meq DAILY PO Last administered on 09:41; Admin Dose 10 MEQ; Start 09/16/17 at 09:00 Tamsulosin HCl (Flomax) 0.4 mg DAILY PO Last administered on 09/22/17 09:41; Admin Dose 0.4 MG; Start 09/16/17 at 09:00 Pantoprazole (Protonix Tab) 40 mg DAILY@06 PO Last administered on 09/22/17 05:55; Admin Dose 40 MG; Start 09/16/17 at 06:00 Acetaminophen (Tylenol Tab) 650 mg Q6H PRN PO PAIN AND OR ELEVATED TEMP Last administered on 09/21/17 05:19; Admin Dose 650 MG; Start 09/16/17 at 02:30 Alendronate Sodium (Fosamax) 70 mg Q7D PO ; Start 09/21/17 at 06:30 Nystatin (Nystatin Powder) 1 applic BID TOP Last administered on 09/22/17 09: 43; Admin Dose 1 APPLIC; Start 09/16/17 at 21:00 Acetaminophen/ Hydrocodone Bitart ([place] (5/325)) 1 tab Q6H PRN PO PAIN LEVEL 4 -6 Last administered on 09/19/17 21:38; Admin Dose 1 TAB; Start 09/17/17 at 13:00 Acetaminophen/ Hydrocodone Bitart ([place] (5/325)) 2 tab Q6H PRN PO SEVERE PAIN LEVEL 7-10 Last administered on 09/18/17 20:30; Admin Dose 2 TAB; Start 09/17 at 13:00 Polyethylene Glycol (Miralax) 17 gm DAILY PRN PO CONSTIPATION Last administered on 09/18/17 14:31; Admin Dose 17 GM; Start 09/18/17 at 14:00 Ascorbic Acid (Vitamin C) 500 mg BID PO Last administered on 09/22/17 09:41; Admin Dose 500 MG; Start 09/18/17 at 21:00 Zinc Sulfate (Zinc Sulfate) 220 mg DAILY PO Last administered on 09/22/17 09: 42; Admin Dose 220 MG; Start 09/19/17 at 09:00 Multivitamins Therapeutic (Theragran) 1 tab DAILY PO Last administered on 09/22 09:42; Admin Dose 1 TAB; Start 09/19/17 at 09:00 Furosemide (Lasix) 40 mg DAILY PO Last administered on 09/22/17 09:42; Admin Dose 40 MG; Start 09/21/17 at 09:00 Docusate Sodium (Colace Liquid Cup) 100 mg DAILY PO Last administered on 09:42; Admin Dose 100 MG; Start 09/22/17 at 09:00 TRINA GOMEZ Sep 22, 2017 11:28
[2017-09-22 11:47] LABS: POTASSIUM 3.7 mmol/L (3.5-5.1)
--- NOTE | 2017-09-22 12:41 | PN ---
Date/Time of Note Date/Time of Note DATE: 09/22/17 TIME: 12:36 Assessment/Plan VTE Prophylaxis VTE Prophylaxis Intervention: other Lines/Catheters IV Catheter Type (from Nrs): Saline Lock Urinary Cath still in place: No Assessment/Plan Assessment/Plan A: copd exacerbation with hypercapnea lt leg hematoma acute on chronic diastolic HF debility P: discussed with pt d/c options again, still wants to go home, okay with cont current rx cont bipap as directed supplemental O2 home health, PT/OT, wound care f/u with me in 1 wk, Dr. Laguna in 2wks, Dr. Felix 2wks, Dr. Verdugo in 1month Subjective 24 Hr Interval Summary Free Text/Dictation Pt c/o some discomfort with condom cath. Did some ambulation with PT this am. Breathing at baseline, no cp. Exam/Review of Systems Vital Signs Vitals Vital Signs Date Time Temp Pulse Resp B/P Pulse Ox O2 Delivery O2 Flow Rate FiO2 09/22/17 12:01 98.7 81 20 99/56 95 09/22/17 08:11 Nasal Cannula 3.0 09/22/17 03:00 40 Intake and Output 09/21/17 09/21/17 09/22/17 15:00 23:00 07:00 Intake Total 240 ml 600 ml Output Total 600 ml 300 ml Balance -360 ml 300 ml Exam gen- nad lungs- sl dec bs bases heart- RRR abd- +BS, soft ext- tr edema, lt leg bandaged Results Result Diagram: 09/22/17 0922 09/22/17 0922 Results 24 hrs Laboratory Tests Test 09/22/17 09:22 White Blood Count 11.2 H Red Blood Count 3.75 L Hemoglobin 11.2 L Hematocrit 35.5 L Mean Corpuscular Volume 94.7 Mean Corpuscular Hemoglobin 29.9 Mean Corpuscular Hemoglobin Concent 31.5 L Red Cell Distribution Width 13.7 Platelet Count 263 Mean Platelet Volume 10.1 Neutrophils % 74.9 Lymphocytes % 12.7 L Monocytes % 8.7 Eosinophils % 2.9 Basophils % 0.3 Nucleated Red Blood Cells % 0.0 Neutrophils # 8.4 H Lymphocytes # 1.4 Monocytes # 1.0 H Eosinophils # 0.3 Basophils # 0.0 Nucleated Red Blood Cells # 0.0 Sodium Level 137 Potassium Level 3.7 Chloride Level 91 L Carbon Dioxide Level 40 H Anion Gap 10 Blood Urea Nitrogen 28 #H Creatinine 0.75 Glucose Level 103 Calcium Level 9.9 Medications Medications Current Medications Allopurinol (Zyloprim) 100 mg DAILY PO Last administered on 09/22/17 09:42; Admin Dose 100 MG; Start 09/16/17 at 09:00 Atorvastatin Calcium (Lipitor) 20 mg QHS PO Last administered on 09/21/17 21: 04; Admin Dose 20 MG; Start 09/16/17 at 21:00 Celecoxib (Celebrex) 200 mg DAILY PO Last administered on 09/22/17 09:41; Admin Dose 200 MG; Start 09/16/17 at 09:00 Escitalopram Oxalate (Lexapro) 10 mg BID PO Last administered on 09/22/17 09: 41; Admin Dose 10 MG; Start 09/16/17 at 09:00 Montelukast Sodium (Singulair) 10 mg QHS PO Last administered on 09/21/17 21: 04; Admin Dose 10 MG; Start 09/16/17 at 21:00 Potassium Chloride (Klor-Con 10) 10 meq DAILY PO Last administered on 09:41; Admin Dose 10 MEQ; Start 09/16/17 at 09:00 Tamsulosin HCl (Flomax) 0.4 mg DAILY PO Last administered on 09/22/17 09:41; Admin Dose 0.4 MG; Start 09/16/17 at 09:00 Pantoprazole (Protonix Tab) 40 mg DAILY@06 PO Last administered on 09/22/17 05:55; Admin Dose 40 MG; Start 09/16/17 at 06:00 Acetaminophen (Tylenol Tab) 650 mg Q6H PRN PO PAIN AND OR ELEVATED TEMP Last administered on 09/21/17 05:19; Admin Dose 650 MG; Start 09/16/17 at 02:30 Alendronate Sodium (Fosamax) 70 mg Q7D PO ; Start 09/21/17 at 06:30 Nystatin (Nystatin Powder) 1 applic BID TOP Last administered on 09/22/17 09: 43; Admin Dose 1 APPLIC; Start 09/16/17 at 21:00 Acetaminophen/ Hydrocodone Bitart ([place] (5/325)) 1 tab Q6H PRN PO PAIN LEVEL 4 -6 Last administered on 09/19/17 21:38; Admin Dose 1 TAB; Start 09/17/17 at 13:00 Acetaminophen/ Hydrocodone Bitart ([place] (5/325)) 2 tab Q6H PRN PO SEVERE PAIN LEVEL 7-10 Last administered on 09/18/17 20:30; Admin Dose 2 TAB; Start 09/17 at 13:00 Polyethylene Glycol (Miralax) 17 gm DAILY PRN PO CONSTIPATION Last administered on 09/18/17 14:31; Admin Dose 17 GM; Start 09/18/17 at 14:00 Ascorbic Acid (Vitamin C) 500 mg BID PO Last administered on 09/22/17 09:41; Admin Dose 500 MG; Start 09/18/17 at 21:00 Zinc Sulfate (Zinc Sulfate) 220 mg DAILY PO Last administered on 09/22/17 09: 42; Admin Dose 220 MG; Start 09/19/17 at 09:00 Multivitamins Therapeutic (Theragran) 1 tab DAILY PO Last administered on 09/22 09:42; Admin Dose 1 TAB; Start 09/19/17 at 09:00 Furosemide (Lasix) 40 mg DAILY PO Last administered on 09/22/17 09:42; Admin Dose 40 MG; Start 09/21/17 at 09:00 Docusate Sodium (Colace Liquid Cup) 100 mg DAILY PO Last administered on 09:42; Admin Dose 100 MG; Start 09/22/17 at 09:00 CHIOMA WALKER MD Sep 22, 2017 12:41
[2017-09-22] MEDS ORDERED: FURO40TA4 PO (12:48)
--- NOTE | 2017-09-22 12:50 | PDOCDIS ---
Discharge Instructions CONDITION Patient Condition: Fair HOME CARE INSTRUCTIONS: Special Diet: 2gm Na/Low cholestero and low fat FOLLOW UP/APPOINTMENTS Follow-up Plan f/u with Dr. Walker 1wk, Dr. Laguna 1wk, Dr. Felix 2wks, Dr. Verdugo 1month REFERRALS Agency Name and Phone Number: [facility] [phone] CHIOMA WALKER MD Sep 22, 2017 12:50
--- NOTE | 2017-09-23 00:11 | PN ---
Date/Time of Note Date/Time of Note DATE: 09/22/17 TIME: 13:03 Assessment/Plan Lines/Catheters IV Catheter Type (from [facility]): Saline Lock Veliz in Place (from [facility]): No Assessment/Plan Chief Complaint/Hosp Course 1. Large medial lower leg soft tissue hematoma: on daily asa 325mg; no fracture , no dvt -elevate leg above heart -pain management -local care -estefanía wrap -monitor closely 2. Syncope: CT head negative -further workup per medical team 3. CHF: bmp >600 -cards consult -cardiac optimization 4. Normocytic normochromic anemia: -monitor -transfuse as needed 5. Electrolyte imbalance -optimize lytes 6. Generalized weakness: 2/2 above -supportive 7. Hypertension -medical management-bp optimization Thank you, Late entry 09/22 Problems: Subjective 24 Hr Interval Summary Leukocytosis improving. Hematoma decreasing in size but still moderate size. No sob. Comfortable at rest. No change in leg sensation, mobility or pulse. No fevers, chills, congested cough, n/v/d/dysuria, sob. Exam/Review of Systems Vital Signs Vitals Vital Signs Date Time Temp Pulse Resp B/P Pulse Ox O2 Delivery O2 Flow Rate FiO2 09/22/17 16:30 77 20 95 Nasal Cannula 3.0 09/22/17 16:22 98.0 99/56 09/22/17 03:00 40 Intake and Output 09/22/17 09/22/17 09/23/17 15:00 23:00 07:00 Intake Total 500 ml 650 ml Output Total 600 ml 500 ml Balance -100 ml 150 ml Exam Free Text/Dictation Constitutional: alert, oriented Psych: nl mood/affect, no complaints Head: atraumatic, normocephalic Eyes: nl lids, nl sclera ENMT: mucosa pink and moist, nl nasal mucosa & septum Neck: non-tender, supple Respiratory: diminished breath sounds Cardiovascular: nl pulses, regular rate and rhythm Gastrointestinal: non-tender, other (rotund), soft Musculoskeletal: other (left lower extremity ecchymosis with hematoma ( decreasing in size); +dp pulse/movement/cap refill <3sec) Extremities: normal pulses Neurological: nl mental status, nl speech, nl strength Skin: nl turgor, other (as above) Results Result Diagram: 09/22/1722 09/22/17 0922 AROLDO LOPEZ MD Sep 23, 2017 00:11
--- NOTE | 2017-09-24 07:21 | DS ---
DATE OF ADMISSION: 09/15/2017 DATE OF DISCHARGE: 09/22/2017 ____ DISCHARGE DIAGNOSES 1. Chronic obstructive pulmonary disease (COPD) exacerbation with hypercapnia ____. 2. Acute exacerbation of diastolic congestive heart failure. 3. Syncope. 4. Hematoma of left leg with a blister formation. 5. Hyponatremia. 6. Hypokalemia. 7. Hypertension. ____ PROCEDURES: Head CT scan ____ lower extremity duplex scan, 2D echocardiogram, carotid duplex scan, drainage of hematoma of left leg x2. CONSULTANTS: Pulmonary, Casey Felix MD; Surgery, Michael Laguna MD; Cardiology, Magno walter MD. HISTORY OF PRESENT ILLNESS: The patient is an 82-year-old, male with a history of O2-depen dent COPD, history of diastolic congestive heart failure, who complained of bruising of left leg aft er his 100-pound dog jumped on his leg while he was in bed. This occurred 5 days prior to admission . The patient had initial bruising diffuse left leg developed a large blister. He pres ented for evaluation. The patient also did note that the last few weeks, his breathing has become p rogressively worse, where he had some dyspnea even at rest. The patient denied any chest pains, pal pitations, or dizziness. There was a reported episode of syncope, where he walking to his [employer] [place] for breakfast the day of admission and unstable had a brief episode of loss of consciousn ess that lasted about 2 seconds, according to his . The patient awoke with seizure activi ty postictal state. No focal weakness. The patient was brought to the [facility] ER and d iagnosed with COPD exacerbation. . The patient was given Solu-Medrol and breathing treatments and also was noted to be hyponatremic and hypercapnic ____. PHYSICAL EXAMINATION ON ADMISSION VITAL SIGNS: Notable for temperature of 99.1, pulse 79, blood pressure 110/ , pulse oximetry 96 % on 4 liters. GENERAL APPEARANCE: The patient is an elderly male. Slightly dyspneic, but appeared nonto xic. HEAD, EARS, EYES, NOSE, AND THROAT: Normocephalic, atraumatic. Sclerae anicteric. Oropharynx is c lear. LUNGS: There were decreased breath sounds at the bases and a few bibasilar crackles. CARDIAC: A regular rate and rhythm. EXTREMITIES: There was a large area of ecchymosis and focal swelling anteriorly and large hemorrhag ic blister in the medial compartment. Mild edema in the right leg. NEUROLOGIC: The patient is awake and alert. Responds appropriately, with no focal neurologic ____. DATA ON ADMISSION: Notable for an EKG showing sinus rhythm at , with a first degree AV block. Chest x-ray showed pulmonary vascular congestion. A left lower extremity duplex was negative for a DVT. Head CT shows atrophy and microvascular. Tibia/fibula x-ray was negative for fractures. Whi te count is 11.7, hemoglobin 12.4, platelets . Sodium was , potassium 3, BUN was 35, crea tinine 0.96, glucose 97. Lactic acid was .2. Troponin 0.023. BNP 678. ABG with pH 7. , pO2 of 105, pCO2 of .8, bicarbonate 0.7. O2 saturation 97% on FiO2 of %. HOSPITAL COURSE 1. Chronic obstructive pulmonary disease (COPD) exacerbation with hypercapnia. The patient was giv en Solu-Medrol in the ER. The patient ____ IV antibiotics and given respiratory treatments . The patient was felt to be a good candidate for BiPAP intermittent BiPAP, which did improve th e patient's symptomatology and clinical picture. The patient antibiotics were discontinued __ ___ respiratory treatment. Continue BiPAP as an outpatient with close respiratory followup. 2. Acute on chronic diastolic heart failure. The patient was with initial clinical findings and x- ray findings of congestive heart failure (CHF). The patient was diuresed. Seen in cardiology consu ltation. The patient did have a 2D echocardiogram, which showed a preserved left ventricular (LV) f unction. His dosage of diuretics were decreased, and he was switched to oral Lasix prior to d ischarge. 3. Syncope. The patient with episodes of loss of consciousness. Head CT was negative. Carotid du plex scan showed no clinically significant obstruction. Workup was not revealing of identifiable so urce for syncope. 4. Left lower extremity hematoma with blister formation. The patient's aspirin was held. No antic oagulation or deep venous thrombosis (DVT) prophylaxis were given due to bleeding risk. The patient did undergo drainage of a hematoma x2 by Dr. Laguna and recommended for now no further interventio n with close monitoring and followup with Dr. Laguna wound care clinic as an outpatient. 5. Hyponatremia, improved with fluid restriction and decreased diuretics. 6. Hypokalemia, improved with replacement. DISCHARGE DISPOSITION: Discharge the patient home with home health, PT, OT, and wound care. DISCHARGE MEDICATIONS 1. Fosamax daily. 2. mg daily. 3. Lipitor 20 mg daily. 4. daily. 5. Citalopram 10 mg . 6. Lasix 40 mg daily. 7. daily. 8. Singulair 10 mg daily. 9. Potassium 10 mEq daily. 10. Flomax 0.4 mg daily. DISCHARGE CONDITION: Fair. DISCHARGE FOLLOWUP: Follow up with myself in [address] Laguna in [address] Felix in [address] Verdugo in 1 month. Dictated By: CHIOMA WALKER MD MN/DONG Conf#: [id number] DID#: [id number] CC: CHIOMA WALKER MD;*End*
== END 2017-09-22 19:40 | disposition home health service (06) | DRG 604 ==
LOC: E/R 13:09 → MS4 18:25
PROVIDERS: ADMIT Internal Medicine; ATTEND Internal Medicine
PROC: 0Y9 Anatomical Regions, Lower Extremities, Drainage (ICD-10-PCS; principal; 2017-09-17)
PROC: 0Y9 Anatomical Regions, Lower Extremities, Drainage (ICD-10-PCS; 2017-09-19)
DX: S80.12XA Contusion of left lower leg, initial encounter (principal); J96.22 Acute and chronic respiratory failure with hypercapnia; J96.21 Acute and chronic respiratory failure with hypoxia; I50.33 Acute on chronic diastolic (congestive) heart failure; G92 Toxic encephalopathy; L89.153 Pressure ulcer of sacral region, stage 3; L89.893 Pressure ulcer of other site, stage 3; I11.0 Hypertensive heart disease with heart failure; I27.20 Pulmonary hypertension, unspecified; E87.1 Hypo-osmolality and hyponatremia; J44.1 Chronic obstructive pulmonary disease with (acute) exacerbation; D64.9 Anemia, unspecified; W54.1XXA Struck by dog, initial encounter; Z87.891 Personal history of nicotine dependence; Z99.81 Dependence on supplemental oxygen; N40.0 Benign prostatic hyperplasia without lower urinary tract symptoms; E87.6 Hypokalemia; M10.9 Gout, unspecified; R55 Syncope and collapse; E03.9 Hypothyroidism, unspecified; K59.00 Constipation, unspecified
CPT/HCPCS: 36600; 70450; 71010; 73590; 80048; 80053; 80061; 82150; 82803; 83605; 83690; 83735; 83880; 84439; 84443; 84484; 85025; 85610; 85730; 87040; 93005; 93306; 93880; 93971; 94640; 94660; 94664; 96374; 97163; J1170; J1940; J1956; J2930; J3370; J7030; J7050

== ENCOUNTER 2017-11-03 21:39 | Inpatient (IN) | END 2017-11-06 22:51 | disposition EXP | DRG 189 ==